=== PATIENT | female | born 1950 | race Caucasian/White ===

== ENCOUNTER 2019-01-05 10:45 | Emergency (ER) | payer OTHER ==
--- NOTE | 2019-01-05 12:05 | ER ---
Nurse's Notes [facility] Name: Ariella Ignacio Age: 68 yrs Sex: Female : 1950 Arrival Date: 01/05/2019 Time: 10:48 Bed 19 Private MD: Diagnosis: Superficial injury of head-occipatal hematoma Presentation: 01/05 11:07 Presenting complaint: Significant other states: "she fell over her vanity stool and hit aa5 the back of her head". Pt has dementia and is unable to recall incident. C/O pain to back of head. Unknown LOC. Transition of care: patient was not received from another setting of care. Onset of symptoms was January 05, 2019. Risk Assessment: Do you want to hurt yourself or someone else? Patient reports no desire to harm self or others. Initial Sepsis Screen: Does the patient meet any 2 criteria? No. Patient's initial sepsis screen is negative. Does the patient have a suspected source of infection? No. Patient's initial sepsis screen is negative. Care prior to arrival: None. 11:07 Acuity: JENNIFER 3 aa5 11:07 Method Of Arrival: Ambulatory aa5 12:00 Mechanism of Injury: Fall from standing position. Trauma event details: Injury occurred sv in the [facility], Injury occurred: at home. Injury occurred: January 05, 2019. Trauma Activation: Not Applicable Physician: ED Physician; Name: ; Notified At: ; Arrived At: Physician: General Surgeon; Name: ; Notified At: ; Arrived At: Physician: Radiology; Name: ; Notified At: ; Arrived At: Physician: Respiratory; Name: ; Notified At: ; Arrived At: Physician: Lab; Name: ; Notified At: ; Arrived At: Historical: - Allergies: 11:08 Ceclor; aa5 - PMHx: 11:08 Dementia; aa5 - PSHx: 11:08 None; aa5 - Immunization history:: Adult Immunizations unknown. - Social history:: Smoking status: Patient/guardian denies using tobacco. - Immunization history: Last tetanus immunization: - up to date. - Ebola Screening: : No symptoms or risks identified at this time. Screenin:53 Abuse screen: Denies threats or abuse. Denies injuries from another. Tuberculosis sv screening: No symptoms or risk factors identified. 11:59 Nutritional screening: No deficits noted. Fall Risk None identified. sv Primary Survey: 11:40 NO uncontrolled hemorrhage observed. A: The patient is alert. Airway: patent, No sv supplemental oxygen in use on arrival. Oral cavity: clear, Trachea midline. Breathing/Chest: Respiratory pattern: regular, Respiratory effort: spontaneous, unlabored, Chest inspection: symmetrical rise and fall of the chest. Circulation: Pulses: palpable right radial artery and left radial artery. Skin color: pink, Skin temperature: warm, dry. Disability Alert. Exposure/Environment: All clothing and personal items were removed. Forensic evidence collection is not deemed to be indicated at this time. Items placed in patient belonging bag. There is no evidence of uncontrolled external bleeding. No obvious injuries are noted at this time. A warming method has been applied: A warm blanket has been provided to the patient. 12:00 Reassessment Airway Airway Patent Oxygen No O2 Oral cavity Clear Trachea Midline sv Breathing/Chest Respiratory pattern Regular Respiratory effort Spontaneous Unlabored Chest inspection Symmetrical Circulation Pulses Palpable Color [place] Temperature Warm Dry Disability Alert. Secondary Survey: 11:40 HEENT: Head Other hematoma noted to the back of the head. Gastrointestinal: No deficits sv noted. : No deficits noted. No signs and/or symptoms were reported regarding the genitourinary system. Musculoskeletal: No deficits noted. No signs and/or symptoms reported regarding the musculoskeletal system. Assessment: 11:48 Reassessment: Informed Dr Tamayo of the reason for visit and symptoms, ok to order CT sv head/C-spine. Vital Signs: 11:08 BP 119 / 73; Pulse 64; Resp 18 S; Temp 98.0(TE); Pulse Ox 100% on R/A; aa5 12:00 BP 111 / 77; Pulse 66; Resp 16; Temp 98; Pulse Ox 99% ; sv Nicanor Coma Score: 11:40 Eye Response: spontaneous(4). Verbal Response: confused(4). Motor Response: obeys sv commands(6). Total: 14. 12:00 Eye Response: spontaneous(4). Verbal Response: confused(4). Motor Response: obeys sv commands(6). Total: 14. Trauma Score (Adult): 11:40 Eye Response: spontaneous(1); Verbal Response: confused(1); Motor Response: obeys sv commands(2); Systolic BP: > 89 mm Hg(4); Respiratory Rate: 10 to 29 per min(4); Kenmare Score: 14; Trauma Score: 12 12:00 Eye Response: spontaneous(1); Verbal Response: confused(1); Motor Response: obeys sv commands(2); Systolic BP: > 89 mm Hg(4); Respiratory Rate: 10 to 29 per min(4); Nicanor Score: 14; Trauma Score: 12 ED Course: 10:48 Patient arrived in ED. mr 11:08 Triage completed. aa5 11:08 Arm band placed on. aa5 11:20 See Tamayo MD is Attending Physician. elsie 11:40 Patient has correct armband on for positive identification. Bed in low position. Call sv light in reach. Side rails up X 1. Adult w/ patient. 11:40 Patient maintains SpO2 saturation greater than 95% on room air. sv 11:40 Thermoregulation: warm blanket given to patient. sv 11:43 Cleopatra Cool RN is Primary Nurse. sv 11:59 ED physician to see patient. sv 12:19 No provider procedures requiring assistance completed. Patient did not have IV access sv during this emergency room visit. Administered Medications: No medications were administered Intake: 11:40 PO: 0ml; Total: 0ml. sv 12:00 PO: 0ml; Total: 0ml. sv Output: 11:40 Urine: 0ml; Total: 0ml. sv 12:00 Urine: 0ml; Total: 0ml. sv Outcome: 12:05 Discharge ordered by . elsie 12:19 Patient left the ED. sv 12:19 Discharged to home ambulatory, with family. sv 12:19 Condition: stable 12:19 Discharge instructions given to family, Instructed on discharge instructions, follow up and referral plans. head injury precautions Demonstrated understanding of instructions, follow-up care, head injury precautions 12:20 Patient's length of stay was not longer than 2 hours. sv Signatures: Cleopatra Cool, See Rodriguez RN, MD MD cha Rivera, Mary mr WoodLucy, RN RN aa5
--- NOTE | 2019-01-05 12:06 | EDPHYS ---
Physician Documentation [facility] Name: Ariella Ignacio Age: 68 yrs Sex: Female : 1950 Arrival Date: 01/05/2019 Time: 10:48 Bed 19 Private MD: ED Physician See Tamayo HPI: 01/05 12:01 This 68 yrs old Female presents to ER via Ambulatory with complaints of Fall elsie Injury. 12:01 Details of fall: The patient fell from seated position, out of a chair. Onset: The elsie symptoms/episode began/occurred just prior to arrival. Associated injuries: The patient sustained injury to the head. Severity of symptoms: At their worst the symptoms were mild, in the emergency department the symptoms are unchanged. The patient has not experienced similar symptoms in the past. Historical: - Allergies: 11:08 Ceclor; aa5 - PMHx: 11:08 Dementia; aa5 - PSHx: 11:08 None; aa5 - Immunization history:: Adult Immunizations unknown. - Social history:: Smoking status: Patient/guardian denies using tobacco. - Immunization history: Last tetanus immunization: - up to date. - Ebola Screening: : No symptoms or risks identified at this time. ROS: 12:01 Constitutional: Negative for fever, chills, and weight loss, Eyes: Negative for injury, elsie pain, redness, and discharge, ENT: Negative for injury, pain, and discharge, Neck: Negative for injury, pain, and swelling, Cardiovascular: Negative for chest pain, palpitations, and edema, Respiratory: Negative for shortness of breath, cough, wheezing, and pleuritic chest pain, Abdomen/GI: Negative for abdominal pain, nausea, vomiting, diarrhea, and constipation, Back: Negative for injury and pain, : Negative for injury, bleeding, discharge, and swelling, MS/Extremity: Negative for injury and deformity, Skin: Negative for injury, rash, and discoloration, Neuro: Negative for headache, weakness, numbness, tingling, and seizure, Psych: Negative for depression, anxiety, suicide ideation, homicidal ideation, and hallucinations, Allergy/Immunology: Negative for hives, rash, and allergies, Endocrine: Negative for neck swelling, polydipsia, polyuria, polyphagia, and marked weight changes, Hematologic/Lymphatic: Negative for swollen nodes, abnormal bleeding, and unusual bruising. Exam: 12:01 Constitutional: This is a well developed, well nourished patient who is awake, alert, elsie and in no acute distress. Head/Face: Normocephalic, atraumatic. Eyes: Pupils equal round and reactive to light, extra-ocular motions intact. Lids and lashes normal. Conjunctiva and sclera are non-icteric and not injected. Cornea within normal limits. Periorbital areas with no swelling, redness, or edema. ENT: Nares patent. No nasal discharge, no septal abnormalities noted. Tympanic membranes are normal and external auditory canals are clear. Oropharynx with no redness, swelling, or masses, exudates, or evidence of obstruction, uvula midline. Mucous membranes moist. Neck: Trachea midline, no thyromegaly or masses palpated, and no cervical lymphadenopathy. Supple, full range of motion without nuchal rigidity, or vertebral point tenderness. No Meningismus. Chest/axilla: Normal chest wall appearance and motion. Nontender with no deformity. No lesions are appreciated. Cardiovascular: Regular rate and rhythm with a normal S1 and S2. No gallops, murmurs, or rubs. Normal PMI, no JVD. No pulse deficits. Respiratory: Lungs have equal breath sounds bilaterally, clear to auscultation and percussion. No rales, rhonchi or wheezes noted. No increased work of breathing, no retractions or nasal flaring. Abdomen/GI: Soft, non-tender, with normal bowel sounds. No distension or tympany. No guarding or rebound. No evidence of tenderness throughout. Back: No spinal tenderness. No costovertebral tenderness. Full range of motion. Female : Normal external genitalia. Skin: Warm, dry with normal turgor. Normal color with no rashes, no lesions, and no evidence of cellulitis. MS/ Extremity: Pulses equal, no cyanosis. Neurovascular intact. Full, normal range of motion. Psych: Awake, alert, with orientation to person, place and time. Behavior, mood, and affect are within normal limits. 12:01 Neuro: Orientation: is normal, appropriate for stated age, no acute changes, Mentation: is normal, appropriate for stated age, no acute changes, Memory: is normal, appropriate for stated age, no acute changes, Cranial nerves: grossly normal, is grossly normal based on the patient's age, no acute changes, Cerebellar function: is grossly normal, is grossly normal based on the patient's age, no acute changes, Motor: is normal, is grossly normal based on the patient's age, no acute changes, moves all fours, Gait: is steady, appropriate for age. Vital Signs: 11:08 BP 119 / 73; Pulse 64; Resp 18 S; Temp 98.0(TE); Pulse Ox 100% on R/A; aa5 12:00 BP 111 / 77; Pulse 66; Resp 16; Temp 98; Pulse Ox 99% ; sv Nicanor Coma Score: 11:40 Eye Response: spontaneous(4). Verbal Response: confused(4). Motor Response: obeys sv commands(6). Total: 14. 12:00 Eye Response: spontaneous(4). Verbal Response: confused(4). Motor Response: obeys sv commands(6). Total: 14. Trauma Score (Adult): 11:40 Eye Response: spontaneous(1); Verbal Response: confused(1); Motor Response: obeys sv commands(2); Systolic BP: > 89 mm Hg(4); Respiratory Rate: 10 to 29 per min(4); Basalt Score: 14; Trauma Score: 12 12:00 Eye Response: spontaneous(1); Verbal Response: confused(1); Motor Response: obeys sv commands(2); Systolic BP: > 89 mm Hg(4); Respiratory Rate: 10 to 29 per min(4); Nicanor Score: 14; Trauma Score: 12 MDM: 11:20 Patient medically screened. [facility] 12:03 Data reviewed: vital signs, nurses notes. [facility] 01/05 12:00 Order name: Ice pack; Complete Time: 12:02 [facility] Administered Medications: No medications were administered Disposition: 01/05/19 12:05 Discharged to Home. Impression: Superficial injury of head - occipatal hematoma. - Condition is Stable. - Discharge Instructions: Head Injury, Adult, Head Injury, Adult, [id number]. - Medication Reconciliation Form, Thank You Letter, Antibiotic Education, Prescription Opioid Use form. - Follow up: Private Physician; When: 1 - 2 days; Reason: Recheck today's complaints, Continuance of care, Re-evaluation by your physician. - Problem is new. - Symptoms have improved. Signatures: Dispatcher [employer] EDMN Cleopatra Cool, RN RN See Davis MD MD cha Calderon, Audri, RN RN aa5 Corrections: (The following items were deleted from the chart) 12:17 11:49 Head C Spine MPR Wo Con+CT.RAD.BRZ ordered. EDMN EDMS 12:19 12:05 01/05/2019 12:05 Discharged to Home. Impression: Superficial injury of head - sv occipatal hematoma. Condition is Stable. Forms are Medication Reconciliation Form, Thank You Letter, Antibiotic Education, Prescription Opioid Use. Follow up: Private Physician; When: 1 - 2 days; Reason: Recheck today's complaints, Continuance of care, Re-evaluation by your physician. Problem is new. Symptoms have improved. elsie
[2019-01-05 12:24] VITALS: BP 119/73; TEMP 98; O2SAT 100
== END 2019-01-05 12:19 | disposition home or self-care (01) ==
LOC: ER 10:45
DX: S00.90XA Unspecified superficial injury of unspecified part of head, initial encounter (principal); W01.190A Fall on same level from slipping, tripping and stumbling with subsequent striking against furniture, initial encounter; Y93.9 Activity, unspecified; Y92.9 Unspecified place or not applicable; Z88.8 Allergy status to other drugs, medicaments and biological substances
CPT/HCPCS: 99284

== ENCOUNTER 2019-03-06 09:33 | Emergency (ER) | payer OTHER ==
[2019-03-06] MEDS ORDERED: ALBUTEROL 2.5 MG/3 ML NEB SOL ONE (10:50)
[2019-03-06] MEDS ORDERED: HYDROCODONE/CHLORPHEN 5 ML/OSYR ONE (11:25)
--- NOTE | 2019-03-06 11:42 | RAD REPORT ---
EXAM DESCRIPTION: Bacilio Guerra (2 Views)03/06/2019 11:34 am CLINICAL HISTORY: Cough COMPARISON: 2016 FINDINGS: The lungs appear clear of acute infiltrate. The heart is normal size IMPRESSION: No acute abnormalities displayed
--- NOTE | 2019-03-06 12:22 | EDPHYS ---
Physician Documentation [facility] Name: Ariella Ignacio Age: 68 yrs Sex: Female : 1950 Arrival Date: 03/06/2019 Time: 09:35 Bed 17 Private MD: Raymond Andrew V ED Physician See Tamayo HPI: 03/06 10:24 This 68 yrs old Female presents to ER via Ambulatory with complaints of pm1 Cough, Congestion. 10:24 The patient or guardian reports cough, with productive sputum, wheezing at night. pm1 Onset: The symptoms/episode began/occurred 3 day(s) ago. Severity of symptoms: in the emergency department the symptoms are unchanged. Modifying factors: The symptoms are alleviated by nothing, the symptoms are aggravated by nothing. Associated signs and symptoms: Pertinent negatives: chest pain, diarrhea, ear ache, fever, nausea, rhinorrhea, sore throat, vomiting. The patient has not recently seen a physician. patient and concerned due to wheezing present at night and want a chest x-ray to evaluate for pneumonia. Historical: - Allergies: 09:48 Ceclor; ss - PMHx: 09:48 Dementia; Alzheimers; ss - PSHx: 09:48 lapband; ss - Immunization history:: Adult Immunizations up to date. - Social history:: Smoking status: Patient/guardian denies using tobacco. - Ebola Screening: : Patient denies exposure to infectious person Patient denies travel to an Ebola-affected area in the 21 days before illness onset. ROS: 10:24 Constitutional: Negative for fever, chills, and weight loss, Eyes: Negative for injury, pm1 pain, redness, and discharge, ENT: Negative for injury, pain, and discharge, Neck: Negative for injury, pain, and swelling, Cardiovascular: Negative for chest pain, palpitations, and edema, Abdomen/GI: Negative for abdominal pain, nausea, vomiting, diarrhea, and constipation, Back: Negative for injury and pain, : Negative for injury, bleeding, discharge, and swelling, MS/Extremity: Negative for injury and deformity, Skin: Negative for injury, rash, and discoloration, Neuro: Negative for headache, weakness, numbness, tingling, and seizure. 10:24 Respiratory: Positive for cough, wheezing, Negative for shortness of breath. Exam: 10:24 Constitutional: This is a well developed, well nourished patient who is awake, alert, pm1 and in no acute distress. Head/Face: Normocephalic, atraumatic. Eyes: Pupils equal round and reactive to light, extra-ocular motions intact. Lids and lashes normal. Conjunctiva and sclera are non-icteric and not injected. Cornea within normal limits. Periorbital areas with no swelling, redness, or edema. ENT: Nares patent. No nasal discharge, no septal abnormalities noted. Tympanic membranes are normal and external auditory canals are clear. Oropharynx with no redness, swelling, or masses, exudates, or evidence of obstruction, uvula midline. Mucous membranes moist. Neck: Trachea midline, no thyromegaly or masses palpated, and no cervical lymphadenopathy. Supple, full range of motion without nuchal rigidity, or vertebral point tenderness. No Meningismus. Chest/axilla: Normal chest wall appearance and motion. Nontender with no deformity. No lesions are appreciated. Cardiovascular: Regular rate and rhythm with a normal S1 and S2. No gallops, murmurs, or rubs. Normal PMI, no JVD. No pulse deficits. 10:24 Abdomen/GI: Soft, non-tender, with normal bowel sounds. No distension or tympany. No guarding or rebound. No evidence of tenderness throughout. Back: No spinal tenderness. No costovertebral tenderness. Full range of motion. Skin: Warm, dry with normal turgor. Normal color with no rashes, no lesions, and no evidence of cellulitis. MS/ Extremity: Pulses equal, no cyanosis. Neurovascular intact. Full, normal range of motion. 10:24 Respiratory: the patient does not display signs of respiratory distress, Respirations: normal, Breath sounds: wheezing: expiratory that is mild, is heard diffusely. 10:24 Neuro: Orientation: is normal, Motor: is normal, moves all fours. Vital Signs: 09:48 BP 126 / 88; Pulse 65; Resp 16; Temp 98.3(TE); Pulse Ox 97% on R/A; Weight 104.33 kg; ss Height 5 ft. 6 in. (167.64 cm); Pain 0/10; 11:04 BP 112 / 79; Pulse 60; Resp 18; Pulse Ox 100% on R/A; Pain 0/10; em 09:48 Body Mass Index 37.12 (104.33 kg, 167.64 cm) ss MDM: 09:43 Patient medically screened. [facility] 12:20 Data reviewed: vital signs. Data interpreted: Pulse oximetry: on room air is 100 %. pm1 Interpretation: normal. Counseling: I had a detailed discussion with the patient and/or guardian regarding: the historical points, exam findings, and any diagnostic results supporting the discharge/admit diagnosis, lab results, radiology results, the need for outpatient follow up, to return to the emergency department if symptoms worsen or persist or if there are any questions or concerns that arise at home. 03/06 10:24 Order name: Flu; Complete Time: 11:15 pm1 03/06 10:24 Order name: Chest Pa And Lat (2 Views) XRAY; Complete Time: 12:01 pm1 Administered Medications: 10:57 Drug: Albuterol 2.5 mg Route: Inhalation; em 11:26 Drug: Tussionex Pennkinetic ER 5 ml Route: PO; em 12:45 Follow up: Response: No adverse reaction em Disposition: 03/06/19 12:21 Discharged to Home. Impression: Influenza due to identified novel influenza A virus. - Condition is Stable. - Discharge Instructions: Influenza, Adult. - Prescriptions for Tamiflu 75 mg Oral Capsule - take 1 tablet by ORAL route every 12 hours for 5 days; 10 tablet. Albuterol Sulfate 90 mcg/actuation - inhale 1-2 puff by INHALATION route every 4-6 hours; 1 Inhaler. Guaifenesin AC 10- 100 mg/5 mL Oral Liquid - take 10 milliliter by ORAL route every 4 hours As needed; 240 milliliter. - Medication Reconciliation Form, Thank You Letter, Antibiotic Education, Prescription Opioid Use form. - Follow up: Emergency Department; When: As needed; Reason: Worsening of condition. Follow up: Private Physician; When: 2 - 3 days; Reason: Recheck today's complaints, Continuance of care, Re-evaluation by your physician. - Problem is new. - Symptoms have improved. Addendum: 03/14/2019 10:59 Co-signature as Attending Physician, See Tamayo MD I agree with the assessment and c worthy plan of care. Signatures: Dispatcher [employer] See Bowman MD MD cha Munoz, Edgar, ELECTRICAL LABORATORY TECHNICIAN ELECTRICAL LABORATORY TECHNICIAN Chhaya Guardado, CYNDI RN ss Sheldon Benito, CARBON GRINDER CARBON GRINDER pm1 Corrections: (The following items were deleted from the chart) 03/06 12:46 12:21 03/06/2019 12:21 Discharged to Home. Impression: Influenza due to identified ss novel influenza A virus. Condition is Stable. Forms are Medication Reconciliation Form, Thank You Letter, Antibiotic Education, Prescription Opioid Use. Follow up: Emergency Department; When: As needed; Reason: Worsening of condition. Follow up: Private Physician; When: 2 - 3 days; Reason: Recheck today's complaints, Continuance of care, Re-evaluation by your physician. Problem is new. Symptoms have improved. pm1
--- NOTE | 2019-03-06 12:22 | ER ---
Nurse's Notes [facility] Name: Ariella Ignacio Age: 68 yrs Sex: Female : 1950 Arrival Date: 03/06/2019 Time: 09:35 Bed 17 Private MD: Raymond Andrew V Diagnosis: Influenza due to identified novel influenza A virus Presentation: 03/06 09:43 Presenting complaint: states: Cough, sinus/ chest congestion x 2-3 days. Denies ss fever. Transition of care: patient was not received from another setting of care. Resp Distress? No respiratory distress is noted at this time. Onset of symptoms was March 03, 2019. Risk Assessment: Do you want to hurt yourself or someone else? Patient reports no desire to harm self or others. Initial Sepsis Screen: Does the patient have a suspected source of infection? Yes: Productive cough/pneumonia. Care prior to arrival: None. 09:43 Method Of Arrival: Ambulatory ss 09:43 Acuity: JENNIFER 3 ss 09:47 Initial Sepsis Screen: Does the patient meet any 2 criteria? No. Patient's initial ss sepsis screen is negative. Historical: - Allergies: 09:48 Ceclor; ss - PMHx: 09:48 Dementia; Alzheimers; ss - PSHx: 09:48 lapband; ss - Immunization history:: Adult Immunizations up to date. - Social history:: Smoking status: Patient/guardian denies using tobacco. - Ebola Screening: : Patient denies exposure to infectious person Patient denies travel to an Ebola-affected area in the 21 days before illness onset. Screenin:49 Abuse screen: Denies threats or abuse. Denies injuries from another. Nutritional ss screening: No deficits noted. Tuberculosis screening: Never had TB. 10:18 Fall Risk None identified. em Assessment: 10:09 General: Appears in no apparent distress. comfortable, Behavior is calm, cooperative, em Denies fever. Pain: Denies pain. Neuro: Level of Consciousness is awake, alert, obeys commands, Oriented to person, place, time, situation, Appropriate for age. Cardiovascular: Capillary refill < 3 seconds Patient's skin is warm and dry. Respiratory: Reports cough that is non-productive, Airway is patent Respiratory effort is even, unlabored, Respiratory pattern is regular, symmetrical, Breath sounds are clear bilaterally. EENT: Reports nasal congestion. Derm: Skin is intact, is healthy with good turgor, Skin is pink, warm \T\ dry. Musculoskeletal: Capillary refill < 3 seconds, Range of motion: intact in all extremities. 11:49 Reassessment: Patient appears in no apparent distress at this time. Patient and/or em family updated on plan of care and expected duration. Pain level reassessed. Patient is alert, oriented x 3, equal unlabored respirations, skin warm/dry/pink. 12:40 Reassessment: Patient appears in no apparent distress at this time. Patient and/or em family updated on plan of care and expected duration. Pain level reassessed. Patient is alert, oriented x 3, equal unlabored respirations, skin warm/dry/pink. Vital Signs: 09:48 BP 126 / 88; Pulse 65; Resp 16; Temp 98.3(TE); Pulse Ox 97% on R/A; Weight 104.33 kg; ss Height 5 ft. 6 in. (167.64 cm); Pain 0/10; 11:04 BP 112 / 79; Pulse 60; Resp 18; Pulse Ox 100% on R/A; Pain 0/10; em 09:48 Body Mass Index 37.12 (104.33 kg, 167.64 cm) ED Course: 09:35 Patient arrived in ED. as 09:35 Raymond Andrew MD is Private Physician. as 09:39 Sheldon Benito NP is PHCP. pm1 09:40 See Tamayo MD is Attending Physician. pm1 09:42 Daniel Vegas LVN is Primary Nurse. em 09:46 Triage completed. ss 09:48 Arm band placed on right wrist. ss 09:49 Patient has correct armband on for positive identification. Bed in low position. Call ss light in reach. 11:34 Chest Pa And Lat (2 Views) XRAY In Process Unspecified. EDMS 12:39 No provider procedures requiring assistance completed. Patient did not have IV access em during this emergency room visit. Administered Medications: 10:57 Drug: Albuterol 2.5 mg Route: Inhalation; em 11:26 Drug: Tussionex Pennkinetic ER 5 ml Route: PO; em 12:45 Follow up: Response: No adverse reaction em Outcome: 12:21 Discharge ordered by . pm1 12:39 Discharged to home ambulatory, with family. em 12:39 Condition: good 12:39 Discharge instructions given to patient, family, Instructed on discharge instructions, follow up and referral plans. medication usage, Demonstrated understanding of instructions, follow-up care, medications, Prescriptions given X 3. 12:46 Patient left the ED. Signatures: Dispatcher [employer] EDDaniel Anaya, LABORATORY ASST LABORATORY ASST Angeli Figueroa Shelby, CYNDI RN Sheldon Benito NP CALENDER WORKER HELPER pm1
[2019-03-06 12:54] VITALS: TEMP 98.3
[2019-03-06 12:56] VITALS: BP 112/79; O2SAT 100
== END 2019-03-06 12:46 | disposition home or self-care (01) ==
LOC: ER 09:33
DX: J10.1 Influenza due to other identified influenza virus with other respiratory manifestations (principal); G30.9 Alzheimer's disease, unspecified; F02.80 Dementia in other diseases classified elsewhere, unspecified severity, without behavioral disturbance, psychotic disturbance, mood disturbance, and anxiety; Z88.8 Allergy status to other drugs, medicaments and biological substances
CPT/HCPCS: 71046; 87804; 99284

== ENCOUNTER 2019-08-07 16:24 | Emergency (ER) | payer OTHER ==
--- OUTSIDE RECORDS SUMMARY | 2019-08-07 16:26 | XMS REPORT ---
:1950 Author Organization [facility] t Address [address] [place] [address] [address] [place] [address] Care Team Providers Name Role Phone Kamran MONAE Primary Care Physician Yrn MONAE Attending Clinician Marianela TOBIAS Attending Clinician Unavailable Gisela HANNA Attending Clinician Unavailable Carlos Marc MD Attending Clinician Maren WHELAN Attending Clinician Unavailable Payers Payer Name Policy Type Policy Number Effective Date Expiration Date S jeannie AETNA xxxxxxxx 2019 [place] MEDICAREAETNA 00:00:00 [facility] MEDICARE HMO/PPO [id number] 0-PresentHMO Problems This patient has no known problems. Allergies, Adverse Reactions, Alerts Allergy Allergy Status Severity Reaction(s) Onset Inactive Treating Comm ents Source Name Type Date Date Clinician Cefaclor Propensi Active Hives [place] ty to 2-06 [facility] adverse 00:00: st reaction 00 s to drug Family History Family Member Diagnosis Comments Start Date Stop Date Source Natural father Alcohol abuse [place] [facility] Natural mother Alzheimer's disease [place] [facility] Natural mother Colon cancer [place] [facility] Social History Social Habit Start Date Stop Date Quantity Comments Source Sex Assigned At [facility] M ethodist Exposure to Not sure [place] Metho dist SARS-CoV-2 (event) Alcohol intake 2019-02-10 2019-02-10 Current drinker of Mike umanzor [facility] 00:00:00 00:00:00 alcohol (finding) Alcohol Comment 2017-07-06 2017-07-06 occasional glass Ella [place]on [facility] 00:00:00 00:00:00 of wine Smoking Status Start Date Stop Date Source Never smoker Duarte Hernández t Medications Ordered Filled Start Stop Current Ordering Indication Dosage Frequency Signature Comments Components Source Medication Medication Date Date Medication? Clinician (SIG) Name Name cholecalcif 2018-03 Yes 400U QD Take 400 [place] fuad, 2-05 Units by [facility] vitamin D3, 12:48: mouth st (VITAMIN 59 daily. D3) 400 unit tablet cyanocobala 2018-03 Yes 1{tbl} Place 1 [place] min, 2-05 tablet [facility] vitamin 12:48: under the st B-12, 23 tongue (VITAMIN daily. B-12) 1,000 mcg tablet, sublingual omeprazole 2018-03 Yes Q.5D 2 (two) [place] (PriLOSEC) 0-17 times a Method i 40 MG 00:00: day. st capsule 00 memantine 2020- No 10mg Q.5D Take 1 [place] (NAMENDA) 11-30- tablet (10 Met hodi 10 MG 00:00: 23:59 mg total) st tablet 00 :00 by mouth 2 (two) times a day. donepezil Yes TAKE 1 [place] (ARICEPT) 8-02 TABLET BY Metho di 10 MG 00:00: MOUTH st tablet 00 EVERY DAY AT BEDTIME montelukast 2019- No 10mg QD Take 10 mg Duarte (SINGULAIR) 7-08 07-08 by mouth Met hodi 10 mg 09:54: 00:[address] tablet 50 :00 folic acid Yes 1mg QD Take 1 mg Mike umanzor (FOLVITE) 1 5-28 by mouth Meth iliana MG tablet 00:00: daily. st 00 colesevelam Yes 625mg Q.5D Take 625 [place] (WELCHOL) 5-12 mg by Methodi 625 mg 00:00: mouth 2 st tablet 00 (two) times a day. rosuvastati Yes 10mg QD Take 10 mg Ramachandran n (CRESTOR) 5-05 by mouth Meth iliana 10 MG 00:00: daily. st tablet 00 escitalopra 2017-03 Yes TAKE 1 [place] (LEXAPRO) 1-09 TABLET BY Met hodi 20 MG 00:00: MOUTH st tablet 00 EVERY DAY memantine 2017-03 2019- No Memory 5 mg/day H [place] (NAMENDA 0-15 24 impairment for =1 Me [facility] TITRATION 00:00: 00:00 week; 5 mg s t PACK) 5-10 00 :00 twice mg tablet daily for pack =1 week; 15 mg/day given in 5 mg and 10 mg doses for =1 week; then 10 mg twice daily VAYACOG Yes TAKE ONE [place] 100-19.5-6. 9-10 CAPSULE BY Me thodi 5 mg 00:00: MOUTH st capsule 00 EVERY DAY donepezil 2019- No TAKE 1 [place] (ARICEPT) 09-24 TABLET BY Meth iliana 10 MG 00:00: 00:[address] tablet 00 :00 EVERY DAY AT BEDTIME Vital Signs Vital Name Observation Time Observation Value Comments Source Systolic blood 2019-02-10 12:46:00 154 mm[Hg] [place] [facility] pressure Diastolic blood 2019-02-10 12:46:00 79 mm[Hg] [place] [facility] pressure Heart rate 2019-02-10 12:46:00 68 /min Duarte Wongist Body temperature 2019-02-10 12:46:00 37 Rosemarie [place] [facility] Respiratory rate 2019-02-10 12:46:00 16 /min [place] [facility] Body height 2019-02-10 12:46:00 167.6 cm Duarte Carrero Body weight 2019-02-10 12:46:00 127.506 kg Duarte Wongist BMI 2019-02-10 12:46:00 45.37 kg/m2 Duarte Carrero Oxygen saturation in 2019-02-10 12:46:00 96 /min Ramachandran [facility] Arterial blood by Pulse oximetry Procedures Procedure Date / Time Performed Performing Clinician Sourc e [place] UPPER GI 2019-02-17 09:35:00 Sven Pool Meth odist Plan of Care Planned Activity Planned Date Details Comments Source Future Scheduled 2019-10-08 INFLUENZA VACCINE [place] [facility] Test 00:00:00 [code = INFLUENZA VACCINE] Future Scheduled 2017 65+ PNEUMOCOCCAL Ramachand[facility] Test 00:00:00 VACCINE (1 of 2 - PCV13) [code = 65+ PNEUMOCOCCAL VACCINE (1 of 2 - PCV13)] Future Scheduled 2002 BREAST CANCER [place] Me thodist Test 00:00:00 SCREENING [code = BREAST CANCER SCREENING] Future Scheduled 2002 COLONOSCOPY SCREENING [place] [facility] Test 00:00:00 [code = COLONOSCOPY SCREENING] Future Scheduled 2002 SHINGLES VACCINES (#1) [facility] [place] [facility] Test 00:00:00 [code = SHINGLES VACCINES (#1)] Encounters Start End Encounter Admission Attending Care Care Encounter Source Date/Time Date/Time Type Type Clinicians Facility Department ID 2019-02-17 2019-02-17 Outpatient YRN, [facility] [id number] 425 [place] 00:00:00 00:00:[address] SVEN [address] Results Test Description Test Time Test Comments Results Result Sourc e Comments FL Upper GI wo 2019-02-06 [facility] [place] KUB [address] 09:40:55 - 02/17/2019 9:44 AM CSTEXAMINATION: [place] UPPER GICLINICAL HISTORY: R10.13 Epigastric pain, Z98.84 Bariatric surgery status, Esophageal refluxCOMPARISON: Esophagram from 05/28/2016.TECHNIQUE: Upper GI series was performed with thin barium.FLUOROSCOPIC TIME: 2.4 minutesNUMBER OF IMAGES: 17 imagesFINDINGS:1. Esophagus: Suboptimal evaluation of the esophageal mucosa without effervescent granules (not administered due to the gastric band). No definite mucosal abnormalities are identified. No evidence of esophageal stricture. The esophagus is mildly patulous with mildly delayed esophageal emptying. There are numerous nonpropulsive tertiary contraction waves, likely age-related.2. Gastroesophageal junction: No evidence of hiatal hernia. No spontaneous gastroesophageal reflux, nor was reflux provoked with Valsalva maneuver, coughing, or Trendelenburg positioning.3. Stomach: A gastric band is in place. Phi angle is approximately 49 degrees, within normal limits. Suboptimal evaluation of the gastric mucosa without effervescent granules, but no discrete abnormality was identified.4. Duodenum: Bulb and sweep are normal. The duodenal-jejunal junction is in the normal expected position.IMPRESSION:M ildly patulous esophagus with mildly delayed esophageal emptying, likely related to the gastric band.No evidence of hiatal hernia or spontaneous or provoked gastroesophageal reflux.[id number]
--- OUTSIDE RECORDS SUMMARY | 2019-08-07 16:26 | XMS REPORT | Clinical Summary ---
:1950 Author Organization [facility] Address [address] [place] [address] Care Team Providers Name Role Phone Raymond Andrew MD Primary Care Provider Allergies Active Allergy Reactions Severity Noted Date Comments Cefaclor Hives High 04/14/2016 Medications Medication Sig Dispensed Refills Start Date End Date Status cyanocobalamin, Place 1 tablet 0 Active vitamin B-12, under the (VITAMIN B-12) tongue daily. 1,000 mcg tablet, sublingual cholecalciferol, Take 400 Units 0 Active vitamin D3, by mouth (VITAMIN D3) 400 daily. unit tablet VAYACOG TAKE ONE 90 capsule 1 11/16/2017 Active 100-19.5-6.5 mg CAPSULE BY capsule MOUTH EVERY DAY escitalopram TAKE 1 TABLET 30 tablet 0 01/15/2018 Ac tive (LEXAPRO) 20 MG BY MOUTH EVERY tablet DAY colesevelam Take 625 mg by 0 07/18/2018 Ac tive (WELCHOL) 625 mg mouth 2 (two) tablet times a day. folic acid Take 1 mg by 3 08/03/2018 Activ e (FOLVITE) 1 MG mouth daily. tablet rosuvastatin Take 10 mg by 1 07/11/2018 Ac tive (CRESTOR) 10 MG mouth daily. tablet donepezil TAKE 1 TABLET 90 tablet 3 10/08/2018 Activ e (ARICEPT) 10 MG BY MOUTH EVERY tablet DAY AT BEDTIME memantine Take 1 tablet 180 tablet 2 11/30/2018 Acti ve (NAMENDA) 10 MG (10 mg total) 0 tablet by mouth 2 (two) times a day. omeprazole 2 (two) times 0 12/23/2018 Acti ve (PriLOSEC) 40 MG a day. capsule donepezil TAKE 1 TABLET 90 tablet 3 09/24/2017 Disco ntinued (ARICEPT) 10 MG BY MOUTH EVERY 9 (Reorder) tablet DAY AT BEDTIME montelukast Take 10 mg by 0 Disc ontinued (SINGULAIR) 10 mg mouth nightly. 9 (Med List tablet Cleanup) memantine 5 mg/day for 49 tablet 12 12/21/2017 Discon tinued (NAMENDA =1 week; 5 mg 9 TITRATION PACK) twice daily 5-10 mg tablet for =1 week; packIndications: 15 mg/day Memory impairment given in 5 mg and 10 mg doses for =1 week; then 10 mg twice daily Active Problems No known active problems Encounters Date Type Specialty Care Team Description 07/21/2019 Travel 02/17/2019 Hospital Encounter Radiology Sven Pool MD Dyspe psia; Hx of laparosco pic gastric banding 02/11/2019 Orders Only General Surgery Leti Bear MA 02/10/2019 Office Visit General Surgery Sven Pool MD Dyspepsi a (Primary Dx); Hx of laparosco pic gastric banding; Esophageal dysp hagia 12/13/2018 Telephone General Surgery Sven Pool MD 11/30/2018 Orders Only Neurology Ale Higgins RN 10/08/2018 Refill Neurology Cornelio Marc MD 09/13/2018 Office Visit Neurology Cornelio Marc Early onset MD Carlos Alzheimer's dem entia without behavio ral disturbance (Pr imary Dx) 09/13/2018 Social Work Neurology Isa Engel, ENTRY TABLE OPERATOR after 08/06/2018 Family History Medical History Relation Name Comments Alcohol abuse Father Alzheimer's disease Mother before 2013 Colon cancer Mother Relation Name Status Comments Father Mother Social History Tobacco Use Types Packs/Day Years Used Date Never Smoker Smokeless Tobacco: Never Used Alcohol Use Drinks/Week oz/Week Comments Yes occasional glass of wine Sex Assigned at Date Recorded Female 08/07/2019 3:38 PM CDT Job Start Date Occupation Industry Not on file Not on file Not on file Travel History Travel Start Travel End No recent travel history available. COVID-19 Exposure Response Date Recorded In the last month, have you been in contact with No / Unsure 07/21/2019 11:37 AM CDT someone who was confirmed or suspected to have Coronavirus / COVID-19? Last Filed Vital Signs Vital Sign Reading Time Taken Comments Blood Pressure 154/79 02/10/2019 12:46 PM [facility] Pulse 68 02/10/2019 12:46 PM [facility] Temperature 37 C (98.6 F) 02/10/2019 12:46 PM [facility] Respiratory Rate 16 02/10/2019 12:46 PM [facility] Oxygen Saturation 96% 02/10/2019 12:46 PM [facility] Inhaled Oxygen Concentration - - Weight 128 kg (281 lb 1.6 oz) 02/10/2019 12:46 PM [facility] Height 167.6 cm (5' 6") 02/10/2019 12:46 PM [facility] Body Mass Index 45.37 02/10/2019 12:46 PM [facility] Plan of Treatment Date Type Specialty Care Team Description 08/10/2019 Office Visit Neurology Cornelio Marc MD [address] [facility] [facility] [address] [place], [place] [address] [phone] Health Maintenance Due Date Last Done Comments BREAST CANCER SCREENING 2002 COLONOSCOPY SCREENING 2002 SHINGLES VACCINES (#1) 2002 65+ PNEUMOCOCCAL VACCINE (1 of 2 - PCV13) 2017 INFLUENZA VACCINE 10/08/2019 Procedures Procedure Name Priority Date/Time Associated Diagnosis Comme nts [place] UPPER GI Routine 02/17/2019 9:35 AM Dyspepsia Results for this [facility] Hx of laparoscopic procedure are in gastric banding the results section. after 08/06/2018 Results [place] Upper GI wo KUB (02/17/2019 9:35 AM [facility]) Specimen Narrative Performed At EXAMINATION: [place] UPPER GI [facility] CLINICAL HISTORY: R10.13 Epigastric pain, Z98.84 Bar iatric surgery status, Esophageal reflux COMPARISON: Esophagram from 05/28/2016. TECHNIQUE: Upper GI series was performed with thin barium. FLUOROSCOPIC TIME: 2.4 minutes NUMBER OF IMAGES: 17 images FINDINGS: 1. Esophagus: Suboptimal evaluation of the esophag eal mucosa without effervescent granules (not administered due to the gas tric band). No definite mucosal abnormalities are identified. No evid ence of esophageal stricture. The esophagus is mildly patulous with mildly delayed esophageal emptying. Ther e are numerous nonpropulsive tertiary contraction waves , likely age-related. 2. Gastroesophageal junction: No evidence of hiata l hernia. No spontaneous gastroesophageal reflux, nor was reflux pr ovoked with Valsalva maneuver, coughing, or Trendele nburg positioning. 3. Stomach: A gastric band is in place. Phi angle is approximately 49 degrees, within normal limits. Suboptimal evaluatio n of the gastric mucosa without effervescent granules, but no discrete abnormality was identified. 4. Duodenum: Bulb and sweep are normal. The duoden al-jejunal junction is in the normal expected posit ion. IMPRESSION: Mildly patulous esophagus with mildly delayed esophage al emptying, likely related to the gastric band. No evidence of hiatal hernia or spontaneous or provoke d gastroesophageal reflux. [id number] Procedure Note Hm Interface, Radiology Results Incoming - 02/17/2019 9:44 AM [facility] EXAMINATION: FL UPPER GI CLINICAL HISTORY: R10.13 Epigastric flakito n, Z98.84 Bariatric surgery status, Esophageal reflux COMPARISON: Esophagram from 05/28/2016. TECHNIQUE: Upper GI series was performed with thin barium. FLUOROSCOPIC TIME: 2.4 minutes NUMBER OF IMAGES: 17 images FINDINGS: 1. Esophagus: Suboptimal evaluation of the esophageal mucosa without effervescent granules (not administered due to the gastric band). No definite mucosal abnormalities are identified. No evidence of esophageal stricture. The esophagus is mildly patulous with mildly delayed esophageal emptying. There are numerous nonpropulsive tertiary contraction waves, likely age-related. 2. Gastroesophageal junction: No evide nce of hiatal hernia. No spontaneous gastroesophageal reflux, nor was reflux provoked with Valsalva maneuver, coughing, or Trendelenburg positioning. 3. Stomach: A gastric band is in place . Phi angle is approximately 49 degrees, within normal limits. Suboptimal evaluation of the gastric mucosa without effervescent granules, but no discrete abnormality was identified. 4. Duodenum: Bulb and sweep are normal . The duodenal-jejunal junction is in the normal expected position. IMPRESSION: Mildly patulous esophagus with mildly de layed esophageal emptying, likely related to the gastric band. No evidence of hiatal hernia or spontane ous or provoked gastroesophageal reflux. [id number] Performing Organization Address City/State/Zipcode Phone Number [facility] [address] [place] [address] after 08/06/2018 Advance Directives For more information, please contact: [phone] Type Date Recorded Patient Dehydrator Tender Explanati on Advance Directives, Living Will and Medical Power of Range Conservationist
[2019-08-07 17:35] LABS: Absolute Lymphocytes (CBC) 1.1 K/uL (0.7-4.9); Basophils % 0.5 % (0-1.3); Hematocrit 40.3 % (36.0-45.0); Lymphocytes % 19.6 % (15.3-44.8); MPV 7.8 fL (7.6-11.3); RBC Red Blood Cell Count 4.63 M/uL (3.86-4.86)
[2019-08-07 17:53] LABS: Urine Blood NEGATIVE (NEG); Urine Glucose NEGATIVE (NEG); Urine Protein NEGATIVE (NEG)
[2019-08-07 17:53] LABS: ALT/SGPT 20 U/L (12-78); AST/SGOT 12 U/L (15-37); Albumin 3.8 g/dL (3.4-5.0); Alkaline Phosphatase 58 U/L (45-117); BUN Blood Urea Nitrogen 18 mg/dL (7-18); Bicarbonate 25 mmol/L (21-32); Bilirubin Direct < 0.1 mg/dL (0-0.2); Bilirubin Total 0.3 mg/dL (0.2-1.0); Glucose Level 114 mg/dL (74-106); Magnesium 2.2 mg/dL (1.8-2.4); Potassium 3.7 mmol/L (3.5-5.1); Protein, Total 7.5 g/dL (6.4-8.2); Sodium Level 140 mmol/L (136-145); Troponin (Emerg Dept Use Only) < 0.02 ng/mL (0.0-0.045)
[2019-08-07 17:58] LABS: Urine Bacteria NONE SEEN /HPF (<20); Urine Culture Reflex Order NOT NEEDED; Urine RBC <5 /HPF (NONE SEEN)
--- NOTE | 2019-08-07 18:49 | RAD REPORT ---
EXAM DESCRIPTION: CT - Head Brain Wo Cont - 08/07/2019 6:25 pm CLINICAL HISTORY: Alteration of awareness/confusion COMPARISON: None TECHNIQUE: Computed axial tomography of the head was obtained. IV contrast was not requested. All CT scans are performed using dose optimization technique as appropriate and may include automated exposure control or mA/KV adjustment according to patient size. FINDINGS: An intracranial bleed is not seen . The ventricles are normal in caliber. No extra-axial fluid collection is noted. Mild cerebral atrophy. Fluid within the sinuses/ mastoids is not seen. IMPRESSION: No acute intracranial abnormality is seen. If patient's symptoms persist MRI of the bra in would be recommended.
[2019-08-07 20:26] VITALS: BP 133/84; TEMP 98.1; O2SAT 95
--- NOTE | 2019-08-08 19:16 | ER ---
Nurse's Notes [facility] Name: Ariella Ignacio Age: 68 yrs Sex: Female : 1950 Arrival Date: 08/07/2019 Time: 16:26 Bed 14 Private MD: Raymond Andrew V Diagnosis: Alzheimer's disease;Dementia in other diseases classified elsewhere Presentation: 08/06 16:29 Chief complaint: Spouse and/or significant other states: Pt has dementia. Today, she ca1 was crying off and on, then would laugh off and on and at times she wouldn't recognize me as her which was a first. Denies fever, abdominal pain, urinary s/s, cough. Coronavirus screen: Proceed with normal triage. Patient denies a cough. Patient denies shortness of breath or difficulty breathing. Patient denies measured and/or subjective temperature greater than 100.4F prior to today's visit. Patient denies travel on a cruise ship or to a country the [facility] currently lists as an affected area. Patient denies contact with known and/or suspected case of COVID-19. Ebola Screen: Patient negative for fever greater than or equal to 101.5 degrees Fahrenheit, and additional compatible Ebola Virus Disease symptoms Patient denies exposure to infectious person. Patient denies travel to an Ebola-affected area in the 21 days before illness onset. No symptoms or risks identified at this time. Initial Sepsis Screen: Does the patient meet any 2 criteria? No. Patient's initial sepsis screen is negative. Does the patient have a suspected source of infection? No. Patient's initial sepsis screen is negative. Risk Assessment: Do you want to hurt yourself or someone else? Patient reports no desire to harm self or others. Onset of symptoms was August 07, 2019. 16:29 Method Of Arrival: Ambulatory ca1 16:29 Acuity: JENNIFER 3 ca1 Triage Assessment: 16:36 General: Appears in no apparent distress. comfortable, Behavior is calm, cooperative. ls4 16:36 Pain: Denies pain. Neuro: Level of Consciousness is awake, alert, obeys commands, ls4 Oriented to person, place, time, Pt ALERT AND ORIENTED BUT HAS DIFFICULTY REMEMBERING HOW TO PERFORM TASKS, LIKE REMOVING GOWN AND SITTING ON BED. PT INTERMITTENTLY IS INAPPROPRIATE AND SEEMS TO LOSE TRACK OF CONVERSATION AND ANSWERS QUESTIONS WITH ANSWERS THAT WOULD BE CORRECT FOR A DIFFERENT QUESTION. PT IS PLEASANT AND IS AWARE THAT SHE IS UNABLE TO REMEMBER HOW TO DO THINGS. . Cardiovascular: No deficits noted. Respiratory: No deficits noted. : No deficits noted. No signs and/or symptoms were reported regarding the genitourinary system. Historical: - Allergies: 16:35 Ceclor; ca1 - PMHx: 16:35 Alzheimers; Dementia; ca1 - PSHx: 16:35 lapband; ca1 - Immunization history:: Adult Immunizations up to date. - Social history:: Smoking status: Patient denies any tobacco usage or history of. Screenin:36 Abuse screen: Denies threats or abuse. Denies injuries from another. ls4 16:36 Nutritional screening: No deficits noted. Tuberculosis screening: No symptoms or risk ls4 factors identified. Fall Risk None identified. Assessment: 16:40 General: SEE TRIAGE NOTE . ls4 17:40 Reassessment: Patient appears in no apparent distress at this time. Patient and/or ls4 family updated on plan of care and expected duration. Pain level reassessed. Patient is alert, oriented x 3, equal unlabored respirations, skin warm/dry/pink. AT BEDSIDE. 18:55 Reassessment: Patient appears in no apparent distress at this time. Patient and/or ls4 family updated on plan of care and expected duration. Pain level reassessed. Patient is alert, oriented x 3, equal unlabored respirations, skin warm/dry/pink. Vital Signs: 16:29 BP 133 / 84; Pulse 75; Resp 16 S; Temp 98.1(TE); Pulse Ox 95% on R/A; Weight 102.06 kg ca1 (R); Height 5 ft. 6 in. (167.64 cm); Pain 0/10; 17:30 BP 138 / 80; Pulse 72; Pulse Ox 97% on R/A; ls4 19:00 BP 132 / 80; Pulse 74; Resp 18; Pulse Ox 97% on R/A; ls4 20:00 BP 128 / 72; Pulse 72; Resp 19; Pulse Ox 97% on R/A; Pain 0/10; ls4 16:29 Body Mass Index 36.32 (102.06 kg, 167.64 cm) ca1 ED Course: 16:26 Patient arrived in ED. ag5 16:26 Raymond Andrew MD is Private Physician. ag5 16:34 Triage completed. ca1 16:35 Sylvia Novak, RN is Primary Nurse. ls4 16:35 Arm band placed on right wrist. ca1 16:36 No provider procedures requiring assistance completed. ls4 16:38 See Barrios PA is PHCP. cp 16:38 Jacques Rosa MD is Attending Physician. cp 17:45 Urine Microscopic Only Sent. mh5 17:45 Basic Metabolic Panel Sent. mh5 17:45 CBC with Diff Sent. mh5 17:45 LFT's Sent. mh5 17:45 Magnesium Sent. 5 17:45 Troponin (emerg Dept Use Only) Sent. mh5 17:46 Initial lab(s) drawn, by me, sent to lab. EKG done, by ED staff, reviewed by Jacques Rosa MD. Inserted saline lock: 22 gauge in right antecubital area, using aseptic technique. Blood collected. Straight cath inserted, using sterile technique, 16 Fr. Specimen obtained. 17:47 Patient has correct armband on for positive identification. Placed in gown. Bed in low mh5 position. Call light in reach. Side rails up X 1. Adult w/ patient. Warm blanket given. monitoring tech on. Pulse ox on. NIBP on. 17:47 Urine collected: straight cath specimen, clear, Amount Returned: 350mL. mh5 18:25 CT Head Brain wo Cont In Process Unspecified. EDMS 20:00 IV discontinued, intact, bleeding controlled, No redness/swelling at site. Pressure ls4 dressing applied. Administered Medications: No medications were administered Outcome: 19:35 Discharge ordered by . cp 20:00 Discharged to home ambulatory, with family. ls4 20:00 Condition: good 20:00 Discharge instructions given to patient, family, Instructed on discharge instructions, follow up and referral plans. Demonstrated understanding of instructions, follow-up care, medications. 20:02 Patient left the ED. ls4 Signatures: Dispatcher [employer] EDMS See Barrios PA PA cp Martinez, Maria 5 Sylvia Novak, RN RN ls4 Mariaa Srinivasan RN RN ca1 Marquis Carroll ag5 Corrections: (The following items were deleted from the chart) 08/07 01:41 08/06 17:24 Sylvia Novak, RN is Primary Nurse. ls4 ls4
--- NOTE | 2019-08-08 19:16 | EDPHYS ---
Physician Documentation [facility] Name: Ariella Ignacio Age: 68 yrs Sex: Female : 1950 Arrival Date: 08/07/2019 Time: 16:26 Bed 14 Private MD: Raymond Andrew V ED Physician Jacques Rosa HPI: 08/06 17:00 This 68 yrs old Female presents to ER via Ambulatory with complaints of cp Anxiety. 17:00 The patient's problem is reported as altered mental status, confused, Patient had cp episode of crying and then laughter today. became concerned because at she did not recognize him briefly. 17:00 Duration: This was a single incident. Associated signs and symptoms: Pertinent cp negatives: abdominal pain, agitation, chest pain, combativeness, headache. Severity of symptoms: in the emergency department the symptoms have resolved and did so earlier today. Patient's baseline: Neuro: orientated to person, place, Motor: no deficits, Ambulation: walks without assistance, Speech: normal, Patient with history of Alzheimer's and Dementia. The patient has not experienced similar symptoms in the past. Historical: - Allergies: 16:35 Ceclor; ca1 - PMHx: 16:35 Alzheimers; Dementia; ca1 - PSHx: 16:35 lapband; ca1 - Immunization history:: Adult Immunizations up to date. - Social history:: Smoking status: Patient denies any tobacco usage or history of. ROS: 17:05 Constitutional: Negative for fever. cp 17:05 Eyes: Negative for injury, pain, redness, and discharge. cp 17:05 Cardiovascular: Negative for chest pain. 17:05 Respiratory: Negative for cough, shortness of breath. 17:05 Abdomen/GI: Negative for abdominal pain, nausea, vomiting, and diarrhea. 17:05 Neuro: Negative for altered mental status, headache, speech changes, weakness. 17:05 All other systems are negative. Exam: 17:10 ECG was reviewed by the Attending Physician. cp 17:12 Constitutional: The patient appears in no acute distress, alert, awake, cp non-diaphoretic, non-toxic, well developed, well nourished. 17:12 Head/Face: Normocephalic, atraumatic. cp 17:12 Eyes: Periorbital structures: appear normal, Pupils: equal, round, and reactive to light and accomodation, Extraocular movements: intact throughout, Conjunctiva: normal, no exudate, no injection, Lids and lashes: appear normal, bilaterally. 17:12 ENT: External ear(s): are unremarkable, Nose: is normal, Mouth: is normal, Posterior pharynx: is normal, airway is patent, no erythema, no exudate. 17:12 Chest/axilla: Inspection: normal, Palpation: is normal, no crepitus, no tenderness. 17:12 Cardiovascular: Rate: normal, Rhythm: regular, Edema: is not appreciated, JVD: is not appreciated. 17:12 Respiratory: the patient does not display signs of respiratory distress, Respirations: normal, no use of accessory muscles, labored breathing, is not present, Breath sounds: are clear throughout, no decreased breath sounds. 17:12 Abdomen/GI: Inspection: abdomen appears normal, Palpation: abdomen is soft and non-tender, in all quadrants. 17:12 Back: pain, is absent, ROM is normal. 17:12 Neuro: Orientation: no acute changes, per family, Mentation: no acute changes, per family, able to follow commands, confused, Cerebellar function: is grossly normal, Motor: moves all fours, strength is normal, Sensation: is normal. 19:00 Radiologist reports: no acute findings cp Vital Signs: 16:29 BP 133 / 84; Pulse 75; Resp 16 S; Temp 98.1(TE); Pulse Ox 95% on R/A; Weight 102.06 kg ca1 (R); Height 5 ft. 6 in. (167.64 cm); Pain 0/10; 17:30 BP 138 / 80; Pulse 72; Pulse Ox 97% on R/A; ls4 19:00 BP 132 / 80; Pulse 74; Resp 18; Pulse Ox 97% on R/A; ls4 20:00 BP 128 / 72; Pulse 72; Resp 19; Pulse Ox 97% on R/A; Pain 0/10; ls4 16:29 Body Mass Index 36.32 (102.06 kg, 167.64 cm) ca1 MDM: 16:52 Patient medically screened. cp 17:00 Differential diagnosis: CVA, TIA, Dementia, Alzheimer disease, metabolic disorder, drug cp effects. 19:30 Data reviewed: vital signs, nurses notes, lab test result(s), EKG, radiologic studies, cp CT scan, I have discussed the patient's presentation/case with the attending Emergency Department Physician; and as a result, I will discharge patient. 19:30 Test interpretation: by ED physician or midlevel provider: ECG. cp 19:34 Counseling: I had a detailed discussion with the patient and/or guardian regarding: the cp historical points, exam findings, and any diagnostic results supporting the discharge/admit diagnosis, lab results, radiology results, the need for outpatient follow up, a neurologist, to return to the emergency department if symptoms worsen or persist or if there are any questions or concerns that arise at home. 19:34 ED course: VSS. Discussed results of labs and CT with . Patient at baseline cp dementia and Alzheimer's. Will discharge to home for continued monitoring. 08/06 16:53 Order name: Basic Metabolic Panel; Complete Time: 18:04 08/06 18:04 Interpretation: Normal except: CL 110; GLUC 114; GFR 58. 08/06 16:53 Order name: CBC with Diff; Complete Time: 18:04 08/06 16:53 Order name: LFT's; Complete Time: 18:04 08/06 16:53 Order name: Magnesium; Complete Time: 18:04 08/06 16:53 Order name: Troponin (emerg Dept Use Only); Complete Time: 18:04 08/06 16:53 Order name: Urine Microscopic Only; Complete Time: 18:04 08/06 16:53 Order name: EKG; Complete Time: 16:54 08/06 16:53 Order name: Cardiac monitoring; Complete Time: 17:46 08/06 16:53 Order name: EKG - Nurse/Tech; Complete Time: 17:45 08/06 16:53 Order name: IV Saline Lock; Complete Time: 17:46 08/06 16:53 Order name: Labs collected and sent; Complete Time: 17:46 08/06 16:53 Order name: O2 Per Protocol; Complete Time: 18:33 08/06 17:46 Order name: Urine Dipstick--Ancillary (enter results); Complete Time: 18:04 08/06 18:05 Order name: CT Head Brain wo Cont; Complete Time: 18:54 08/06 18:54 Interpretation: Report reviewed. cp 08/06 16:53 Order name: O2 Sat Monitoring; Complete Time: 18:34 cp 08/06 16:53 Order name: Urine Dipstick-Ancillary (obtain specimen); Complete Time: 17:45 cp EC:10 Rate is 65 beats/min. Rhythm is regular. [place] interval is normal. QRS interval is normal. cp QT interval is normal. T waves are Inverted in lead aVR. Interpreted by me. Reviewed by me. Administered Medications: No medications were administered Disposition: 08/07 15:16 Co-signature as Attending Physician, Jacques Rosa MD I agree with the assessment and kdr plan of care. Disposition: 08/07/19 19:35 Discharged to Home. Impression: Alzheimer's disease, Dementia in other diseases classified elsewhere. - Condition is Stable. - Discharge Instructions: Dementia, Alzheimer Disease Caregiver Guide. - Medication Reconciliation Form, Thank You Letter, Antibiotic Education, Prescription Opioid Use form. - Follow up: Private Physician; When: 1 - 2 days; Reason: Recheck today's complaints. - Problem is chronic. - Symptoms are unchanged. Signatures: Dispatcher [employer] EDMS Jacques Rosa MD MD [facility] See Barrios PA PA cp Sylvia Novak RN RN ls4 Mariaa Srinivasan RN RN ca1 Corrections: (The following items were deleted from the chart) 08/06 20:02 19:35 08/07/2019 19:35 Discharged to Home. Impression: Alzheimer's disease; Dementia in ls4 other diseases classified elsewhere. Condition is Stable. Forms are Medication Reconciliation Form, Thank You Letter, Antibiotic Education, Prescription Opioid Use. Follow up: Private Physician; When: 1 - 2 days; Reason: Recheck today's complaints. Problem is chronic. Symptoms are unchanged. cp
== END 2019-08-07 20:02 | disposition home or self-care (01) ==
LOC: ER 16:24
DX: G30.9 Alzheimer's disease, unspecified (principal); F02.80 Dementia in other diseases classified elsewhere, unspecified severity, without behavioral disturbance, psychotic disturbance, mood disturbance, and anxiety; Z88.8 Allergy status to other drugs, medicaments and biological substances
CPT/HCPCS: 36415; 51702; 70450; 80048; 80076; 81003; 81015; 83735; 84484; 85025; 93005; 99284

== ENCOUNTER 2020-04-30 16:22 | Emergency (ER) | payer OTHER ==
--- OUTSIDE RECORDS SUMMARY | 2020-04-30 16:25 | XMS REPORT | Clinical Summary ---
:1950 Author Organization [facility] Address [address] [place] [address] Care Team Providers Name Role Phone Raymond [...] mouth (VITAMIN D3) 400 daily. unit tablet escitalopram TAKE 1 TABLET 30 tablet 0 [...] tive (CRESTOR) 10 MG mouth daily. tablet omeprazole 2 (two) times 0 12/23/2018 Acti ve (PriLOSEC) 40 MG a day. capsule memantine TAKE 1 TABLET 180 tablet 2 01/27/2020 Acti ve (NAMENDA) 10 MG BY MOUTH TWICE tablet A DAY metFORMIN XR TAKE 1 TABLET 90 tablet 4 03/13/2020 Ac tive (GLUCOPHAGE-XR) BY MOUTH EVERY 750 mg 24 hr DAY WITH tabletIndications BREAKFAST : Increased appetite QUEtiapine Take 1 tablet 30 tablet 11 04/03/2020 Acti ve (SEROqueL) 50 MG (50 mg total) tablet by mouth every morning. traZODone TAKE 1 TABLET 90 tablet 3 04/21/2020 Activ e (DESYREL) 50 MG BY MOUTH tablet NIGHTLY QUEtiapine TAKE 1 TABLET 90 tablet 4 04/24/2020 Acti ve (SEROquel) 100 MG (100 MG TOTAL) tablet BY MOUTH NIGHTLY VAYACOG TAKE ONE 90 capsule 1 11/16/2017 Disconti nued 100-19.5-6.5 mg CAPSULE BY 0 (Th erapy capsule MOUTH EVERY complete d) DAY donepezil TAKE 1 TABLET 90 tablet 3 10/08/2018 Disco ntinued (ARICEPT) 10 MG BY MOUTH EVERY 0 tablet DAY AT BEDTIME memantine Take 1 tablet 180 tablet 2 11/30/2018 Expi red (NAMENDA) 10 MG (10 mg total) 0 tablet by mouth 2 (two) times a day. ALPRAZolam Take 1 tablet 15 tablet 1 08/10/2019 Disc ontinued (Xanax) 0.25 MG (0.25 mg 0 tabletIndications total) by : Early onset mouth 3 Alzheimer's (three) times disease with a day as behavioral needed for disturbance (HCC) anxiety (For crying or anxiety spells) for up to 30 doses. donepeziL TAKE 1 TABLET 90 tablet 3 10/18/2019 Disco ntinued (ARICEPT) 10 MG BY MOUTH EVERY 0 (Drug tablet DAY AT BEDTIME inter action) ALPRAZolam TAKE 1 TABLET 15 tablet 1 11/24/2019 Disc ontinued (XANAX) 0.25 MG BY MOUTH 3 0 tabletIndications TIMES A DAY : Early onset NEEDED FOR Alzheimer's ANXIETY (FOR disease with CRYING OR behavioral ANXIETY disturbance (HCC) SPELLS) ALPRAZolam Take 1 tablet 50 tablet 0 11/25/2019 Disc ontinued (XANAX) 0.25 MG (0.25 mg 0 tabletIndications total) by : Early onset mouth 3 Alzheimer's (three) times disease with a day as behavioral needed for disturbance (HCC) anxiety for up to 50 doses. ALPRAZolam TAKE 1 TABLET 50 tablet 0 12/22/2019 Disc ontinued (XANAX) 0.25 MG BY MOUTH 3 0 tabletIndications TIMES A DAY : Early onset NEEDED FOR Alzheimer's ANXIETY FOR UP disease with TO 50 DOSES. behavioral disturbance (HCC) ALPRAZolam TAKE 1 TABLET 50 tablet 0 01/10/2020 Disc ontinued (XANAX) 0.25 MG BY MOUTH THREE 0 tabletIndications TIMES A DAY : Early onset NEEDED FOR Alzheimer's ANXIETY disease with behavioral disturbance (HCC) ALPRAZolam TAKE 1 TABLET 50 tablet 0 01/27/2020 Disc ontinued (XANAX) 0.25 MG BY MOUTH THREE 0 tabletIndications TIMES A DAY : Early onset NEEDED FOR Alzheimer's ANXIETY disease with behavioral disturbance (HCC) QUEtiapine Take 1 tablet 30 tablet 0 01/26/2020 Disc ontinued (SEROquel) 100 MG (100 mg total) 0 tablet by mouth nightly for 30 days. QUEtiapine TAKE 1 TABLET 90 tablet 1 02/17/2020 Disc ontinued (SEROquel) 100 MG (100 MG TOTAL) 0 (Therapy tablet BY MOUTH completed) NIGHTLY FOR 30 DAYS. ALPRAZolam TAKE 1 TABLET 50 tablet 0 02/20/2020 Disc ontinued (XANAX) 0.25 MG BY MOUTH THREE 1 (Reorder) tabletIndications TIMES A DAY : Early onset NEEDED FOR Alzheimer's ANXIETY disease with behavioral disturbance (HCC) risperiDONE Take 1 tablet 60 tablet 0 02/20/2020 Dis continued (RisperDAL) 1 MG (1 mg total) 1 (Therapy tabletIndications by mouth 2 c ompleted) : Early onset (two) times a Alzheimer's day for 30 disease with days. behavioral disturbance (HCC) metFORMIN XR Take 1 tablet 30 tablet 11 03/06/2020 Di scontinued (GLUCOPHAGE-XR) (750 mg total) 1 750 mg 24 hr by mouth daily tabletIndications with : Increased breakfast. appetite risperiDONE TAKE 1 TABLET 180 tablet 1 03/14/2020 Di scontinued (RisperDAL) 1 MG (1 MG TOTAL) 1 (Dose tabletIndications BY MOUTH 2 a djustment) : Early onset (TWO) TIMES A Alzheimer's DAY FOR 30 disease with DAYS. behavioral disturbance (HCC) risperiDONE Take 1 tablet 60 tablet 0 03/14/2020 Dis continued (RisperDAL) 3 MG (3 mg total) 1 tablet by mouth 2 (two) times a day for 30 days. ALPRAZolam Take 1 tablet 90 tablet 1 03/19/2020 Disc ontinued (XANAX) 0.25 MG (0.25 mg 1 (Reo rder) tabletIndications total) by : Early onset mouth 3 Alzheimer's (three) times disease with a day as behavioral needed for disturbance (HCC) anxiety for up to 30 days. ALPRAZolam Take 1 tablet 90 tablet 1 03/19/2020 Expi red (XANAX) 0.25 MG (0.25 mg 1 tabletIndications total) by : Early onset mouth 3 Alzheimer's (three) times disease with a day as behavioral needed for disturbance (HCC) anxiety for up to 30 days. QUEtiapine Take 1 tablet 60 tablet 2 03/27/2020 Disc ontinued (SEROqueL) 25 MG (25 mg total) 1 tablet by mouth 2 (two) times a day. traZODone Take 1 tablet 30 tablet 11 03/29/2020 Disco ntinued (DESYREL) 50 MG (50 mg total) 1 tablet by mouth nightly for 30 days. QUEtiapine Take 1 tablet 30 tablet 11 03/30/2020 Disc ontinued (SEROqueL) 100 MG (100 mg total) 1 tablet by mouth nightly for 360 days. QUEtiapine Take 1 tablet 30 tablet 11 03/30/2020 Disc ontinued (SEROqueL) 25 MG (25 mg total) 1 tablet by mouth every morning. Active Problems Problem Noted Date Increased appetite 03/06/2020 Encounters Date Type Specialty Care Team Description 04/21/2020 Refill Neurology Juan C Sanchez MD 04/20/2020 Refill Neurology Juan C Sanchez MD 04/18/2020 Refill Neurology Juan C Sanchez MD 04/10/2020 Telephone Neurology Ale Higgins, CYNDI 04/06/2020 Social Work Neurology Isa Engel, HEALTH INSURANCE ASSESSOR 04/05/2020 Social Work Neurology Isa Engel, [facility] 04/05/2020 Telephone ADMIN Ale Higgins, CYNDI 04/04/2020 Orders Only Neurology Juan C Sanchez MD 04/03/2020 Orders Only Neurology Juan C Sanchez MD 04/03/2020 Telephone Neurology Ale Higgins, CYNDI 03/30/2020 Orders Only Neurology Juan C Sanchez MD Toxic m etabolic encephalopathy (Primary Dx) 03/29/2020 Orders Only Neurology Juan C Sanchez MD 03/29/2020 Telephone ADMIN Ale Higgins, CYNDI 03/27/2020 Orders Only Neurology Juan C Sanchez MD 03/27/2020 Telephone Neurology Ale Higgins, CYNDI 03/19/2020 Orders Only Neurology Ale Higgins, CYNDI 03/19/2020 Telephone Neurology Ale Higgins RN 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) 03/19/2020 Orders Only ADMIN Ale Higgins RN 03/19/2020 Refill ADMIN Ale Higgins RN 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) 03/15/2020 Refill Neurology uGy Randall Early onset Ana's MD Alexis disease with be havioral disturbance (HC C) 03/14/2020 Orders Only Neurology Cornelio Marc MD 03/14/2020 Telephone ADMIN Ale Higgins RN 03/13/2020 Refill Neurology Cornelio Marc, Early o nset Ana's disease with be havioral disturbance (HC C) 03/07/2020 Refill Neurology Cornelio Marc Increas ed appetite MD 03/06/2020 Orders Only Neurology Cornelio Marc Increas ed appetite (Primary MD Dx) 03/05/2020 Telephone Neurology Ale Higgnis RN 02/20/2020 Orders Only Neurology Cornelio Marc Early o nset Mgs MD disease with be havioral disturbance (HC C) (Primary Dx) 02/20/2020 Telephone ADMIN Ale Higgins RN 02/18/2020 Telephone Neurology Guy Randall MD 02/17/2020 Refill Neurology Cornelio Marc Early o nset Alzheimer's MD disease with be havioral disturbance (HC C) 02/17/2020 Refill Neurology Cornelio Marc MD 02/06/2020 Telephone Neurology Edie Gill RN 01/26/2020 Telephone Neurology Ale Higgins RN 01/25/2020 Refill Neurology Cornelio Marc Early o nset Alzheimer's MD disease with be havioral disturbance (HC C) 01/21/2020 Refill Neurology Cornelio Marc MD 01/06/2020 Refill Neurology Cornelio Marc Early o nset Alzheimer's MD disease with be havioral disturbance (HC C) 12/20/2019 Refill Neurology Cornelio Marc Early o nset Alzheimer's MD disease with be havioral disturbance (HC C) 12/09/2019 Social Work Neurology Isa Engel, HEALTH INSURANCE ASSESSOR 11/25/2019 Orders Only Neurology Cornelio Marc Early o nset Alzheimer's disease with behavioral disturbance (HCC) (Primary Dx); Anxiety 11/25/2019 Orders Only ADMIN Ale Higgins RN 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) (Primary Dx) 11/24/2019 Telephone Neurology Ale Higgins RN 11/22/2019 Refill Neurology Cornelio Marc Early o nset Alzheimer's MD disease with be havioral disturbance (HC C) 10/13/2019 Refill Neurology Cornelio Marc MD 08/22/2019 Social Work Neurology Isa Engel, HEALTH INSURANCE ASSESSOR 08/10/2019 Office Visit Neurology Cornelio Marc, Early o nset Alzheimer's MD disease with be havioral disturbance (HC C) (Primary Dx) 08/10/2019 Travel 07/21/2019 Travel after 04/30/2019 Surgical History Surgery Date Site/Laterality Comments LAPAROSCOPIC GASTRIC BANDING age 55 Medical History Medical History Date Comments Anxiety Depression High cholesterol Memory loss Family History Medical History Relation Name Comments [...] file Not on file Not on file Last Filed Vital Signs Vital Sign Reading Time Taken Comments Blood Pressure 108/73 08/10/2019 9:19 AM CDT Pulse 75 08/10/2019 9:19 AM CDT Temperature 36.4 C (97.5 F) 08/10/2019 9:19 AM CDT Respiratory Rate - - Oxygen Saturation - - Inhaled Oxygen Concentration - - Weight 106 kg (233 lb 9.6 oz) 08/10/2019 9:19 AM CDT Height 167.6 cm (5' 6") 08/10/2019 9:19 AM CDT Body Mass Index 37.7 08/10/2019 9:19 AM CDT Plan of Treatment Health Maintenance Due Date Last Done Comments COVID-19 VACCINE (1 of 2) 1968 HEPATITIS C SCREENING 1970 BREAST CANCER SCREENING 2002 COLONOSCOPY SCREENING 2002 SHINGLES VACCINES (#1) 2002 65+ PNEUMOCOCCAL VACCINE (1 of 1 - PPSV23) 2017 INFLUENZA VACCINE 10/08/2019 Procedures Procedure Name Priority Date/Time Associated Diagnosis Comme nts URINALYSIS, AUTOMATED Routine 04/04/2020 4:59 Toxic metabolic Results for this WITH MICROSCOPY PM CRYPTOLOGIC TECHNICIAN OPERATOR/ANALYST encephalopathy procedure are in the results section. COMPREHENSIVE Routine 04/04/2020 3:55 Toxic metabolic Results for this METABOLIC PANEL PM CRYPTOLOGIC TECHNICIAN OPERATOR/ANALYST encephalopathy procedure are in the results section. CBC WITH PLATELET AND Routine 04/04/2020 3:55 Toxic metabolic Results for this DIFFERENTIAL PM CRYPTOLOGIC TECHNICIAN OPERATOR/ANALYST encephalopathy procedure are in the results section. after 04/30/2019 Results Urinalysis, automated with microscopy (04/04/2020 4:59 PM CRYPTOLOGIC TECHNICIAN OPERATOR/ANALYST) Color, UA YELLOW YELLOW [facility] [place] Appearance CLEAR CLEAR [facility] [place] Specific gravity, 1.013 1.001 - 1.035 [facility] urine [place] pH, urine < OR = 5.0 5.0 - 8.0 [facility] [place] Glucose, urine NEGATIVE NEGATIVE [facility] [place] Bilirubin, UA NEGATIVE NEGATIVE [facility] [place] Ketones, UA NEGATIVE NEGATIVE [facility] [place] Occult blood, urine NEGATIVE NEGATIVE [facility] [place] Protein, UA NEGATIVE NEGATIVE [facility] [place] Nitrite, UA NEGATIVE NEGATIVE [facility] [place] Leukocyte esterase, TRACE (A) NEGATIVE [facility] UA [place] WBC, UA NONE SEEN < OR = 5 /HPF [facility] [place] RBC, UA 0-2 < OR = 2 /HPF [facility] [place] Squamous epithelial NONE SEEN < OR = 5 /HPF [facility] cells, UA [place] Bacteria, UA NONE SEEN NONE SEEN /HPF [facility] [place] Hyaline casts, UA NONE SEEN NONE SEEN /LPF [facility] [place] Specimen Urine Narrative Performed At SPLIT 04/04/2020 FROM [id number] [facility] Resulting Agency Comment Performing Organization Information: Site ID: [id number] Name: [facility] Address: [address] [place] [id number] Director: Alexis Schroeder Performing Organization Address City/State/[facility] Code Phon e Number [email or web address] [place] [address] [place] [id number] CBC with platelet and differential (04/04/2020 3:55 PM CRYPTOLOGIC TECHNICIAN OPERATOR/ANALYST) Pathologist Sig nature WBC 7.1 3.8 - 10.8 [facility] Thousand/uL [place] RBC 4.16 3.80 - 5.10 [facility] Million/uL [place] HGB 12.1 11.7 - 15.5 [facility] g/dL [place] HCT 36.5 35.0 - 45.0 % [facility] [place] MCV 87.7 80.0 - 100.0 fL [facility] [place] MCH 29.1 27.0 - 33.0 pg [facility] [place] MCHC 33.2 32.0 - 36.0 [facility] g/dL [place] RDW 12.5 11.0 - 15.0 % [facility] [place] Platelet count 287 140 - 400 [facility] Thousand/uL [place] MPV 9.8 7.5 - 12.5 fL [facility] [place] Neutrophils, absolute 4,821 1,500 - 7,800 [facility] cells/uL [place] Lymphocytes, absolute 1,328 850 - 3,900 [facility] cells/uL [place] Monocytes, absolute 802 200 - 950 [facility] cells/uL [place] Eosinophils, absolute 121 15 - 500 [facility] cells/uL [place] Basophils, absolute 28 0 - 200 [facility] cells/uL [place] Neutrophils 67.9 % [facility] [place] Lymphocytes 18.7 % [facility] [place] Monocytes 11.3 % [facility] [place] Eosinophils 1.7 % [facility] [place] Basophils + RC 0.4 % [facility] [place] Specimen Blood Narrative Performed At FASTING:NO KRISTEN PATIENT UNABLE TO VOID; ADVISED TO RETUR N FOR COLLECTION. FASTING: NO Resulting Agency Comment Performing Organization Information: Site ID: [id number] Name: [facility] Address: [address] [place] [address] Director: Alexis Schroeder Performing Organization Address City/State/ZIP Code Phon e Number K[facility]STEN [facility] [place] [address] [place] [address] Comprehensive metabolic panel (04/04/2020 3:55 PM CRYPTOLOGIC TECHNICIAN OPERATOR/ANALYST) Glucose 114 65 - 139 [email or web address] Comment: mg/dL [place] Non-fasting reference interval BUN 19 7 - 25 mg/dL [email or web address] [place] Creatinine 1.02 (H) 0.50 - 0.99 [facility] Comment: mg/dL [place] For patients >49 years of age, the reference limit for Creatinine is approximately 13% higher for people identified as -[place]. EGFR Non-Afr. 57 (L) > OR = 60 [facility] [place] mL/min/1.73m [place] 2 EGFR 66 > OR = 60 [facility] [place] mL/min/1.73m [place] 2 BUN/creatinine 19 6 - 22 [facility] ratio (calc) [place] Sodium 141 135 - 146 [facility] mmol/L [place] Potassium 4.0 3.5 - 5.3 [facility] mmol/L [place] Chloride 104 98 - 110 [facility] mmol/L [place] CO2 30 20 - 32 [facility] mmol/L [place] Calcium 9.3 8.6 - 10.4 [facility] mg/dL [place] Protein 6.4 6.1 - 8.1 [facility] g/dL [place] Albumin, S 4.2 3.6 - 5.1 [facility] g/dL [place] Globulin, total 2.2 1.9 - 3.7 [facility] g/dL (calc) [place] Albumin/globulin 1.9 1.0 - 2.5 [facility] ratio (calc) [place] Total bilirubin 0.4 0.2 - 1.2 [facility] mg/dL [place] Alkaline 47 37 - 153 U/L [facility] phosphatase [place] AST 18 10 - 35 U/L [facility] [place] ALT 16 6 - 29 U/L [facility] [place] Specimen Blood Narrative Performed At FASTING:NO KRISTEN PATIENT UNABLE TO VOID; ADVISED TO RETUR N FOR COLLECTION. 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
--- OUTSIDE RECORDS SUMMARY | 2020-04-30 16:26 | XMS REPORT | Continuity of Care Document ---
:1950 Author Organization [facility] t Address [address] [place] [address] Dr. [address] [place] [address] Care Team Providers Name Role Phone Kamran MONAE Primary Care Physician DR ALEXSANDER Attending Clinician Unavailable Daniel MONAE Attending Clinician Gisela HANNA Attending Clinician Unavailable Maren WHELAN Attending Clinician Unavailable Alexis Randall MD Attending Clinician Carlos Marc MD Attending Clinician Kelsie Gill RN Attending Clinician Unavailable MARCOS Attending Clinician Unavailable DR ALEXSANDER Admitting Clinician Unavailable Payers Payer Name Policy Type Policy Number Effective Date Expiration Date S jeannie AETNA [id number] 2019 [place] MEDICAREAETNA 00:00:00 [place] MEDICARE HMO/PPO [id number]-PresentHMO Problems Condition Condition Condition Status Onset Resolution Last Treating Co mments Source Name Details Category Date Date Treatment Clinician Date Increased Increased Disease Active 2019-03 Ella ston appetite appetite 2-29 Method i 00:00: st 00 Allergies, Adverse Reactions, Alerts Allergy Allergy Status Severity Reaction(s) Onset Inactive Treating Comm ents Source Name Type Date Date Clinician Cefaclor Propensi Active Hives [place] ty to 2-06 Methodi adverse 00:00: st reaction 00 s to drug Family History Family Member Diagnosis Comments Start Date Stop Date Source Natural father Alcohol abuse [place] [facility] Natural mother Alzheimer's disease [place] [facility] Natural mother Colon cancer [facility] Social History Social Habit Start Date Stop Date Quantity Comments Source Sex Assigned At F Duarte Maradiaga ethodi Tobacco use and 2019-08-10 2019-08-10 Never used Duarte Maradiaga ethodist exposure 00:00:00 00:00:00 Alcohol intake 2019-08-10 2019-08-10 Current drinker of Mike umanzor [facility] 00:00:00 00:00:00 alcohol (finding) Alcohol Comment 2017-07-06 2017-07-06 occasional glass Ella silver [facility] 00:00:00 00:00:00 of wine Smoking Status Start Date Stop Date Source Never smoker Ramachandran Betty Medications Ordered Filled Start Stop Current Ordering Indication Dosage Frequency Signature Comments Components Source Medication Medication Date Date Medication? Clinician (SIG) Name Name QUEtiapine Yes TAKE 1 [place] (SEROquel) 2-16 TABLET Methodi 100 MG 00:00: ([address] tablet 00 TOTAL) BY MOUTH NIGHTLY traZODone Yes TAKE 1 [place] (DESYREL) 2-13 TABLET BY Metho di 50 MG 00:00: MOUTH st tablet 00 NIGHTLY QUEtiapine Yes 50mg QD Take 1 [place] (SEROqueL) 1-26 tablet (50 Met hodi 50 MG 00:00: mg total) st tablet 00 by mouth every morning. QUEtiapine 2020- No 100mg QD Take 1 Ella ston (SEROqueL) 03-30-16 tablet Method i 100 MG 00:00: 00:00 ([address] tablet 00 :00 total) by mouth nightly for 360 days. QUEtiapine 2020- No 25mg QD Take 1 [place] (SEROqueL) 03-30-26 tablet (25 Me thodi 25 MG 00:00: 00:00 mg total) st tablet 00 :00 by mouth every morning. traZODone 2020- No 50mg QD Take 1 [place] (DESYREL) - 02-12 tablet (50 Met hodi 50 MG 00:00: 00:00 mg total) st tablet 00 :00 by mouth nightly for 30 days. QUEtiapine 2020- No 25mg Q.5D Take 1 [place] (SEROqueL) 1-19 01-22 tablet (25 Me thodi 25 MG 00:00: 00:00 mg total) st tablet 00 :00 by mouth 2 (two) times a day. ALPRAZolam 2020- No Early onset .25mg Q.[id number] Take 1 Ramachandran (XANAX) 03-19 Alzheimer's [id number] tablet Methodi 0.25 MG 00:00: 23:59 disease 3D (0.[address] tablet 00 :00 with total) by behavioral mouth 3 disturbance (three) (HCC) times a day as needed for anxiety for up to 30 days. ALPRAZolam 2020- No Early onset .25mg Q.[id number] Take 1 Ramachandran (XANAX) 03-19 Alzheimer's [id number] tablet Methodi 0.25 MG 00:00: 00:00 disease 3D (0.[address] tablet 00 :00 with total) by behavioral mouth 3 disturbance (three) (HCC) times a day as needed for anxiety for up to 30 days. risperiDONE 2020- No Early onset 1mg Q.5D TAKE 1 Ramachandran (RisperDAL) 03-14 Alzheimer's TABLET (1 Methodi 1 MG tablet 00:00: 00:00 disease MG TOTAL) st 00 :00 with BY MOUTH 2 behavioral (TWO) disturbance TIMES A (HCC) DAY FOR 30 DAYS. risperiDONE 2020- No 3mg Q.5D Take 1 Ella silver (RisperDAL) 03-14 tablet (3 Me thodi 3 MG tablet 00:00: 00:00 mg total) st 00 :00 by mouth 2 (two) times a day for 30 days. metFORMIN Yes Increased TAKE 1 [place] XR 05 appetite TABLET BY Method i (GLUCOPHAGE 00:00: MOUTH st -XR) 750 mg 00 EVERY DAY 24 hr WITH tablet BREAKFAST metFORMIN 2019-03- No Increased 750mg QD Take 1 Ramachandran XR 03-13 appetite tablet Methodi (GLUCOPHAGE 00:00: 00:00 ([address] -XR) 750 mg 00 :00 total) by 24 hr mouth tablet daily with breakfast. ALPRAZolam 2019-03- No Early onset TAKE 1 Ramachandran (XANAX) 04-22 Alzheimer's TABLET BY Methodi 0.25 MG 00:00: 00:[address] tablet 00 :00 with THREE behavioral TIMES A disturbance DAY (HCC) NEEDED FOR ANXIETY risperiDONE 2019-03- No Early onset 1mg Q.5D Take 1 Duarte (RisperDAL) 203-14 Alzheimer's tablet (1 Methodi 1 MG tablet 00:00: 00:00 disease mg total) st 00 :00 with by mouth 2 behavioral (two) disturbance times a (HCC) day for 30 days. QUEtiapine 2019-03- No 100mg QD TAKE 1 Ella ston (SEROquel) 202-19 TABLET Method i 100 MG 00:00: 00:00 ([address] tablet 00 :00 TOTAL) BY MOUTH NIGHTLY FOR 30 DAYS. memantine 2019-03 Yes TAKE 1 [place] (NAMENDA) 1-20 TABLET BY Metho di 10 MG 00:00: MOUTH st tablet 00 TWICE A DAY ALPRAZolam 2019-03- No Early onset TAKE 1 Duarte (XANAX) 03-28 Alzheimer's TABLET BY Methodi 0.25 MG 00:00: 00:[address] tablet 00 :00 with THREE behavioral TIMES A disturbance DAY (HCC) NEEDED FOR ANXIETY QUEtiapine 2019-03- No 100mg QD Take 1 Ella ston (SEROquel) 03-27 tablet Method i 100 MG 00:00: 00:00 ([address] tablet 00 :00 total) by mouth nightly for 30 days. ALPRAZolam 2019-03- No Early onset TAKE 1 Ramachandran (XANAX) 1-05 17-20 Alzheimer's TABLET BY Methodi 0.25 MG 00:00: 00:[address] tablet 00 :00 with THREE behavioral TIMES A disturbance DAY (HCC) NEEDED FOR ANXIETY ALPRAZolam 2019-03- No Early onset TAKE 1 Ramachandran (XANAX) 0-15 - Alzheimer's TABLET BY Methodi 0.25 MG 00:00: 00:[address] tablet 00 :00 with TIMES A behavioral DAY disturbance NEEDED FOR (HCC) ANXIETY FOR UP TO 50 DOSES. ALPRAZolam 2019- No Early onset .25mg Q.[id number] Take 1 Ramachandran (XANAX) 9-18 10-15 Alzheimer's [id number] tablet Methodi 0.25 MG 00:00: 00:00 disease 3D (0.[address] tablet 00 :00 with total) by behavioral mouth 3 disturbance (three) (HCC) times a day as needed for anxiety for up to 50 doses. ALPRAZolam 2019- 2020- No Early onset TAKE 1 [place] (XANAX) 11-23 Alzheimer's TABLET BY Methodi 0.25 MG 00:00: 00:[address] tablet 00 :00 with TIMES A behavioral DAY disturbance NEEDED FOR (HCC) ANXIETY (FOR CRYING OR ANXIETY SPELLS) donepeziL 2019- No TAKE 1 [place] (ARICEPT) 10-17 TABLET BY Meth iliana 10 MG 00:00: 00:[address] tablet 00 :00 EVERY DAY AT BEDTIME cyanocobala 2019-0 Yes 1{tbl} Place 1 [place] min, 6- tablet Methodi vitamin 09:21: under the st B-12, 18 tongue (VITAMIN daily. B-12) 1,000 mcg tablet, sublingual cholecalcif Yes 400U QD Take 400 [place] fuad, 6- Units by Methodi vitamin D3, 09:21: mouth st (VITAMIN 18 daily. D3) 400 unit tablet ALPRAZolam 2019-0 2020- No Early onset .25mg Q.[id number] Take 1 [place] (Xanax) 08-09- Alzheimer's [id number] tablet Methodi 0.25 MG 00:00: 00:00 disease 3D (0.[address] tablet 00 :00 with total) by behavioral mouth 3 disturbance (three) (HCC) times a day as needed for anxiety (For crying or anxiety spells) for up to 30 doses. omeprazole 2018-03 Yes Q.5D 2 (two) [place] (PriLOSEC) 0-17 times a Method i 40 MG 00:00: day. st capsule 00 memantine 2019- No 10mg Q.5D Take 1 [place] (NAMENDA) 11-30 tablet (10 Met hodi 10 MG 00:00: 23:59 mg total) st tablet 00 :00 by mouth 2 (two) times a day. donepezil 2020- No TAKE 1 [place] (ARICEPT) 8-02 08-11 TABLET BY Meth iliana 10 MG 00:00: 00:[address] tablet 00 :00 EVERY DAY AT BEDTIME folic acid Yes 1mg QD Take 1 mg [place] (FOLVITE) 1 5-28 by mouth Meth iliana [...] 00:00: MOUTH st tablet 00 EVERY DAY VAYACOG 2020- No TAKE ONE [place] 100-19.5-6. 9-10 08-09 CAPSULE BY Hiren ethodi 5 mg 00:00: 00:[address] capsule 00 :00 EVERY DAY Vital Signs Vital Name Observation Time Observation Value Comments Source Systolic blood 2019-08-10 09:19:00 108 mm[Hg] [place] pressure Diastolic blood 2019-08-10 09:19:00 73 mm[Hg] [place] [facility] pressure Heart rate 2019-08-10 09:19:00 75 /min Duarte Carrero Body temperature 2019-08-10 09:19:00 36.39 Rosemarie [place] Body height 2019-08-10 09:19:00 167.6 cm Duarte Carrero Body weight 2019-08-10 09:19:00 105.96 kg Duarte Carrero BMI 2019-08-10 09:19:00 37.70 kg/m2 Duarte Carrero Procedures Procedure Date / Time Performed Performing Clinician Sour e URINALYSIS, AUTOMATED 2020-04-04 16:59:00 Juan C Sanchez on [facility] WITH MICROSCOPY CBC WITH PLATELET AND 2020-04-04 15:55:00 Juan C Sanchez on [facility] DIFFERENTIAL COMPREHENSIVE METABOLIC 2020-04-04 15:55:00 Juan C Sanchez [facility] PANEL Plan of Care Planned Activity Planned Date Details Comments Source Future Scheduled 2019-10-08 INFLUENZA VACCINE [place] [facility] Test 00:00:00 [code = INFLUENZA VACCINE] Future Scheduled 2017 65+ PNEUMOCOCCAL Ramachandran [facility] Test 00:00:00 VACCINE (1 of 1 - PPSV23) [code = 65+ PNEUMOCOCCAL VACCINE (1 of 1 - PPSV23)] Future Scheduled 2002 BREAST CANCER [facility] thodist Test 00:00:00 SCREENING [code = BREAST CANCER SCREENING] Future Scheduled 2002 COLONOSCOPY SCREENING [place] [facility] Test 00:00:00 [code = COLONOSCOPY SCREENING] Future Scheduled 2002 SHINGLES VACCINES (#1) H [place] [facility] Test 00:00:00 [code = SHINGLES VACCINES (#1)] Future Scheduled 1970 Hepatitis C screening [place] [facility] Test 00:00:00 (procedure) [code = 379190729] Future Scheduled 1968 COVID-19 VACCINE (1 of [place] [facility] Test 00:00:00 2) [code = COVID-19 VACCINE (1 of 2)] Encounters Start End Encounter Admission Attending Care Care Encounter Source Date/Time Date/Time Type Type Clinicians Facility Department ID 2020-04-06 2020-04-21 Inpatient Cullen BELTRE [facility] [id number] [facility] 15:00:00 13:04:00 TRISH Alfaro [facility] 2019-08-10 2019-08-10 Outpatient MASDEU, [facility] [id number] 548 [place] 00:00:00 00:00:00 OMEGA [address] 2019-02-17 2019-02-17 Outpatient MARCOS, [facility] [id number] 425 [place] 00:00:00 00:00:00 AIMEE [address] Results Test Description Test Time Test Comments Results Result Comments Source GLUCOMETER GLUCOSE- LAB USE ONLY 2020-04-21 11:12:00 Test Item Value Reference Range Interpretation Comme nts GLUCOMETER (test code = GMG) 107 mg/dL 70-100 H CLEANED METERMeter ID: [id number] tor: 6224 MINE JOSÉ GLUCOMETER GLUCOSE- LAB USE [id number] 07:17:00 Test Item Value Reference Range Interpretation Comments GLUCOMETER (test code 109 mg/dL 70-100 H CLEANE D METERMeter ID: = GMG) [id number] tor: 1331 MARIANNE SCOT T GLUCOMETER GLUCOSE- LAB USE [id number] 19:02:00 Test Item Value Reference Range Interpretation Comments GLUCOMETER (test code 121 mg/dL 70-100 H CLEANE D METERMeter ID: = GMG) [id number] tor: 9867 ERIC Drea KARMALE GLUCOMETER GLUCOSE- LAB USE [id number] 16:33:00 Test Item Value Reference Range Interpretation Comments GLUCOMETER (test code 116 mg/dL 70-100 H CLEANE D METERMeter ID: = GMG) [id number] tor: 6224 MINE ROOSEVELT TS GLUCOMETER GLUCOSE- LAB USE [id number] 11:13:00 Test Item Value Reference Range Interpretation Comments GLUCOMETER (test code 179 mg/dL 70-100 H CLEANE D METERMeter ID: = GMG) [id number] tor: 6224 MINE ROOSEVELT TS GLUCOMETER GLUCOSE- LAB USE [id number] 07:45:00 Test Item Value Reference Range Interpretation Comments GLUCOMETER (test code 109 mg/dL 70-100 H CLEANE D METERMeter ID: = GMG) [id number] tor: 3912 [facility] GLUCOMETER GLUCOSE- LAB USE [id number] 19:21:00 Test Item Value Reference Range Interpretation Comments GLUCOMETER (test code 145 mg/dL 70-100 H CLEANE D METERMeter ID: = GMG) [id number] tor: 3831 FRANCIS MILLS GLUCOMETER GLUCOSE- LAB USE [id number] 16:37:00 Test Item Value Reference Range Interpretation Comments GLUCOMETER (test code 108 mg/dL 70-100 H CLEANE D METERMeter ID: = GMG) [id number] tor: 3912 [facility] GLUCOMETER GLUCOSE- LAB USE [id number] 11:38:00 Test Item Value Reference Range Interpretation Comments GLUCOMETER (test code = 103 mg/dL 70-100 H Mete r ID: GMG) [id number] tor: 6680 ELLEN ANGELFIELD GLUCOMETER GLUCOSE- LAB USE [id number] 07:39:00 Test Item Value Reference Range Interpretation Comments GLUCOMETER (test code 117 mg/dL 70-100 H CLEANE D METERMeter ID: = GMG) [id number] tor: 8413 JERROD SAHU LL GLUCOMETER GLUCOSE- LAB USE [id number] 20:02:00 Test Item Value Reference Range Interpretation Comments GLUCOMETER (test code 109 mg/dL 70-100 H CLEANE D METERMeter ID: = GMG) [id number] tor: 7339 KOSTAS WILLIE SON GLUCOMETER GLUCOSE- LAB USE [id number] 16:34:00 Test Item Value Reference Range Interpretation Comments GLUCOMETER (test code = 98 mg/dL 70-100 TANG MCKENNA METERMeter ID: GMG) [id number] tor: 8280 BREANN SAAVEDRA LTON GLUCOMETER GLUCOSE- LAB USE [id number] 11:34:00 Test Item Value Reference Range Interpretation Comments GLUCOMETER (test code 117 mg/dL 70-100 H CLEANE D METERMeter ID: = GMG) [id number] tor: 8280 BREANN SAAVEDRA LTON GLUCOMETER GLUCOSE- LAB USE [id number] 07:19:00 Test Item Value Reference Range Interpretation Comments GLUCOMETER (test code 139 mg/dL 70-100 H CLEANE D METERMeter ID: = GMG) [id number] tor: 6680 ELLEN Keating [facility] GLUCOMETER GLUCOSE- LAB USE [id number] 19:33:00 Test Item Value Reference Range Interpretation Comments GLUCOMETER (test code 112 mg/dL 70-100 H CLEANE D METERMeter ID: = GMG) [id number] tor: 7339 KOSTAS WILLIE SON GLUCOMETER GLUCOSE- LAB USE [id number] 16:09:00 Test Item Value Reference Range Interpretation Comments GLUCOMETER (test 117 mg/dL 70-100 H Result Not code = GMG) ConfirmedMeter ID: [id number] tor: 4611 TORI DE LA ROSAAN GLUCOMETER GLUCOSE- LAB USE [id number] 07:31:00 Test Item Value Reference Range Interpretation Comments GLUCOMETER (test code = 113 mg/dL 70-100 H Mete r ID: GMG) [id number] tor: 6680 ELLEN ANGELFIELD GLUCOMETER GLUCOSE- LAB USE [id number] 19:39:00 Test Item Value Reference Range Interpretation Comments GLUCOMETER (test code 108 mg/dL 70-100 H CLEANE D METERMeter ID: = GMG) [id number] tor: 04938 SILVIA MARIAI GLUCOMETER GLUCOSE- LAB USE [id number] 16:53:00 Test Item Value Reference Range Interpretation Comments GLUCOMETER (test 111 mg/dL 70-100 H CLEANED MET ERDAILY code = GMG) MAINTENANCEMete r ID: [id number] tor: 4612 CARLOS MARTINI GLUCOMETER GLUCOSE- LAB USE [id number] 11:24:00 Test Item Value Reference Range Interpretation Comments GLUCOMETER (test code 120 mg/dL 70-100 H CLEANE D METERMeter ID: = GMG) [id number] tor: 8280 BREANN SAAVEDRA LTON GLUCOMETER GLUCOSE- LAB USE [id number] 07:16:00 Test Item Value Reference Range Interpretation Comments GLUCOMETER (test 125 mg/dL 70-100 H CLEANED MET ERDAILY code = GMG) MAINTENANCEMete r ID: [id number] tor: 4612 CARLOS MARTINI GLUCOMETER GLUCOSE- LAB USE [id number] 16:51:00 Test Item Value Reference Range Interpretation Comments GLUCOMETER (test code 120 mg/dL 70-100 H CLEANE D METERMeter ID: = GMG) [id number] tor: 1328 ASHLEY MURMarifer HY GLUCOMETER GLUCOSE- LAB USE [id number] 11:38:00 Test Item Value Reference Range Interpretation Comments GLUCOMETER (test code 128 mg/dL 70-100 H CLEANE D METERMeter ID: = GMG) [id number] tor: 8280 BREANN SAAVEDRA LTON GLUCOMETER GLUCOSE- LAB USE [id number] 07:47:00 Test Item Value Reference Range Interpretation Comments GLUCOMETER (test code = 116 mg/dL 70-100 H Mete r ID: GMG) [id number] tor: 8280 BREANN IGLESIAS GLUCOMETER GLUCOSE- LAB USE [id number] 19:07:00 Test Item Value Reference Range Interpretation Comments GLUCOMETER (test code 101 mg/dL 70-100 H CLEANE D METERMeter ID: = GMG) [id number] tor: 67437 SILVIA IYERMBI GLUCOMETER GLUCOSE- LAB USE [id number] 16:49:00 Test Item Value Reference Range Interpretation Comments GLUCOMETER (test code 109 mg/dL 70-100 H CLEANE D METERMeter ID: = GMG) [id number] tor: 9379 LEIGH ANN WRIGHT IEWHITE GLUCOMETER GLUCOSE- LAB USE [id number] 12:06:00 Test Item Value Reference Range Interpretation Comments GLUCOMETER (test code 194 mg/dL 70-100 H CLEANE D METERMeter ID: = GMG) [id number] tor: 3912 [facility] GLUCOMETER GLUCOSE- LAB USE [id number] 07:16:00 Test Item Value Reference Range Interpretation Comments GLUCOMETER (test 117 mg/dL 70-100 H CLEANED MET ERDAILY code = GMG) MAINTENANCEMete r ID: [id number] tor: 4612 CARLOS MARTINI GLUCOMETER GLUCOSE- LAB USE [id number] 22:08:00 Test Item Value Reference Range Interpretation Comments GLUCOMETER (test 144 mg/dL 70-100 H Result Not code = GMG) ConfirmedMeter ID: [id number] tor: 0040 KIERRA KOENIG E GLUCOMETER GLUCOSE- LAB USE [id number] 16:11:00 Test Item Value Reference Range Interpretation Comments GLUCOMETER (test code 138 mg/dL 70-100 H CLEANE D METERMeter ID: = GMG) [id number] tor: 1331 MARIANNE GRANDE T GLUCOMETER GLUCOSE- LAB USE [id number] 11:41:00 Test Item Value Reference Range Interpretation Comments GLUCOMETER (test code 105 mg/dL 70-100 H CLEANE D METERMeter ID: = GMG) [id number] tor: 8413 JERROD SAHU LL GLUCOMETER GLUCOSE- LAB USE [id number] 07:19:00 Test Item Value Reference Range Interpretation Comments GLUCOMETER (test code 128 mg/dL 70-100 H CLEANE D METERMeter ID: = GMG) [id number] tor: 1331 MARIANNE SCOT T GLUCOMETER GLUCOSE- LAB USE [id number] 22:01:00 Test Item Value Reference Range Interpretation Comments GLUCOMETER (test code 103 mg/dL 70-100 H CLEANE D METERMeter ID: = GMG) [id number] tor: 1818 [place] B ADMUS GLUCOMETER GLUCOSE- LAB USE [id number] 16:31:00 Test Item Value Reference Range Interpretation Comments GLUCOMETER (test code 129 mg/dL 70-100 H CLEANE D METERMeter ID: = GMG) [id number] tor: 6224 MINE ALBERT TS GLUCOMETER GLUCOSE- LAB USE [id number] 11:36:00 Test Item Value Reference Range Interpretation Comments GLUCOMETER (test code 106 mg/dL 70-100 H CLEANE D METERMeter ID: = GMG) [id number] tor: 8413 JERROD SAHU LL GLUCOMETER GLUCOSE- LAB USE [id number] 16:33:00 Test Item Value Reference Range Interpretation Comments GLUCOMETER (test code = 109 mg/dL 70-100 H Mete r ID: GMG) [id number] tor: 6680 JANEENRAVENRigoberto [place] GLUCOMETER GLUCOSE- LAB USE [id number] 11:32:00 Test Item Value Reference Range Interpretation Comments GLUCOMETER (test code 111 mg/dL 70-100 H CLEANE D METERMeter ID: = GMG) [id number] tor: 8280 BREANN SAAVEDRA [facility] GLUCOMETER GLUCOSE- LAB USE [id number] 07:10:00 Test Item Value Reference Range Interpretation Comments GLUCOMETER (test code 119 mg/dL 70-100 H CLEANE D METERMeter ID: = GMG) [id number] tor: 6224 MINE ROOSEVELT TS [id number] 06:50:00 Test Item Value Reference Range Interpretation Comments LITHIUM (test code = <0.20 mmol/L 0.60-1.50 L LI) LIH (test code = LIH) LIT HIUM THERAPEUTIC RANGE Acute tanya: 1.0-1.5 mmol/L Gabriel-term control 0.6-1.2 mmol/L Toxic level: > 2.0 mmol/L LIPID [id number] 06:48:00 Test Item Value Reference Range Interpretation Comments CHOLESTROL (test code = 44A) 113 mg/dL 140-200 L TRIGLYCERI (test code = 42B) 88 mg/dL <=149 HDL (test code = 83D) 58.0 mg/dL 40.0-60.0 LDL (test code = 34B) 49 mg/dL <=99 CHL/HDL (test code = CHR) 1.9 0.0-3.4 GLUCOMETER GLUCOSE- LAB USE [id number] 21:10:00 Test Item Value Reference Range Interpretation Comments GLUCOMETER (test code 133 mg/dL 70-100 H CLEANE D METERMeter ID: = GMG) [id number] tor: 7339 KOSTAS WILLIE SON GLUCOMETER GLUCOSE- LAB USE [id number] 16:20:00 Test Item Value Reference Range Interpretation Comments GLUCOMETER (test 106 mg/dL 70-100 H Result Not code = GMG) ConfirmedMeter ID: [id number] tor: 4611 TORI MEDRANO GLUCOMETER GLUCOSE- LAB USE [id number] 11:48:00 Test Item Value Reference Range Interpretation Comments GLUCOMETER (test code 130 mg/dL 70-100 H CLEANE D METERMeter ID: = GMG) [id number] tor: 4611 TORI DE LA ROSA AN VALPROIC ACID (DEPAKENE)2020-04-09 08:50:00 Test Item Value Reference Range Interpretation Comments VALP ACID (test code = 95A) <3.0 ug/mL 50.0-100.0 LL B12 [id number] 08:45:00 Test Item Value Reference Range Interpretation Comments VIT B12 (test code = A60) 625.0 pg/mL 180.0-914.0 [id number] 08:45:00 Test Item Value Reference Range Interpretation Comments FOLATE (test code = A75) 52.2 ng/mL 3.1-17.5 H THYROID PANEL/SCREEN (TSH)2020-04-09 08:33:00 Test Item Value Reference Range Interpretation Comments TSH (test code = A57) 2.110 uIU/mL 0.358-3.740 [id number] 08:31:00 Test Item Value Reference Range Interpretation Comments Hb A1C % (test code 5.7 % 3.8-6.4 = HBA) A1C % (test code = HbA1c (% ) A1C) Reference Range Normal <5.7 Prediabetes 5.7-6.4 Diabetic >=6.5 [id number] 08:24:00 Test Item Value Reference Range Interpretation Comments MAGNESIUM (test code = 48A) 2.2 mg/dL 1.8-2.4 [id number] 08:24:00 Test Item Value Reference Range Interpretation Comments PREALBUMIN (test code = 08E) 17 mg/dL 18-38 L GLUCOMETER GLUCOSE- LAB USE [id number] 08:00:00 Test Item Value Reference Range Interpretation Comments GLUCOMETER (test code 109 mg/dL 70-100 H CLEANE D METERMeter ID: = GMG) [id number] tor: 8413 JERROD SAHU LL GLUCOMETER GLUCOSE- LAB USE [id number] 19:54:00 Test Item Value Reference Range Interpretation Comments GLUCOMETER (test code 112 mg/dL 70-100 H CLEANE D METERMeter ID: = GMG) [id number] tor: 8582 MEKA SHIPLEY WFORD GLUCOMETER GLUCOSE- LAB USE [id number] 16:20:00 Test Item Value Reference Range Interpretation Comments GLUCOMETER (test code 107 mg/dL 70-100 H CLEANE D METERMeter ID: = GMG) [id number] tor: 6224 MINE ALBERT TS GLUCOMETER GLUCOSE- LAB USE [id number] 11:14:00 Test Item Value Reference Range Interpretation Comments GLUCOMETER (test code 124 mg/dL 70-100 H CLEANE D METERMeter ID: = GMG) [id number] tor: 1331 AMPATRICIA SCOT T GLUCOMETER GLUCOSE- LAB USE [id number] 08:08:00 Test Item Value Reference Range Interpretation Comments GLUCOMETER (test 121 mg/dL 70-100 H CLEANED MET ERDAILY code = GMG) MAINTENANCEMete r ID: [id number] tor: 4612 CARLOS MARTINI GLUCOMETER GLUCOSE- LAB USE [id number] 05:24:00 Test Item Value Reference Range Interpretation Comments GLUCOMETER (test code 120 mg/dL 70-100 H CLEANE D METERMeter ID: = GMG) [id number] tor: 7320 RUDI Guzman DRUGS OF [id number] 19:05:00 Test Item Value Reference Range Interpretation Comments DRUG SCRN (test code URINE DRUG SCREEN = HDOA) This is an unconfirmed screening result and should not be used for non-medical purposes CANNABINOD (test code Negative NEGATIVE = 88C) AMPHETAMINE (test Negative NEGATIVE code = 84A) BENZODIAZP (test code POSITIVE NEGATIVE A = 86A) BARBITURAT (test code Negative NEGATIVE = 85A) OPIATES (test code = Negative NEGATIVE 92B) COCAINE (test code = Negative NEGATIVE 87A) PHENCYCLID (test code Negative NEGATIVE = 66A) METHADONE (test code Negative NEGATIVE = 64A) DOAH (test code = DOAH.) *URINE DRUG SCREEN Cut-off values are as follows: Cannabinoids 50 ng/mL Cocaine 300 ng/mL Amphetamines 1000 ng/mL Phencyclidine 25 ng/mL Benzodiazepines 200 ng.mL Methadone 300 ng/mL Barbiturates 200 ng/mL Opiates 2000 ng/mL URINALYSIS WITH [id number] 18:52:00 Test Item Value Reference Range Interpretation Comments COLOR (test code = COLU) YELLOW YELLOW CLARITY (test code = CLA) CLEAR CLEAR GLUCOSE UR (test code = UA GLUCOSE) NEGATIVE NEGATIVE BILI UR (test code = BILE) NEGATIVE NEGATIVE KETONES UR (test code = NIALL) NEGATIVE NEGATIVE SP GRAVITY (test code = SPGR) 1.014 1.005-1.030 PH UR (test code = PH) 6.0 4.5-8.0 PROTEIN UR (test code = PU) NEGATIVE NEGATIVE UROBIL UR (test code = UROQ) 0.2 EU/dL 0.2-1.0 NITRITE UR (test code = NITRITE) NEGATIVE NEGATIVE BLOOD UR (test code = UA BLOOD) NEGATIVE NEGATIVE LEUK ES UR (test code = LEUK) TRACE NEGATIVE A WBC UR (test code = UWBC) 3 /HPF 0-5 RBC UR (test code = URBC) 0 /HPF 0-2 EPITH UR (test code = UEPC) FEW /LPF FEW BACTERIA UR (test code = UBACT) NONE /HPF NONE CAST UR (test code = CAST) /LPF NONE CRYSTAL UR (test code = CRYU) / LPF NONE MUCUS UR (test code = MUC) / HPF NONE AMORPH UR (test code = ARLETH) / HPF NONE TRICH UR (test code = UTRICH) /HPF NONE YEAST UR (test code = UY) /HPF NONE SPERM UR (test code = USPERM) /HPF NONE [id number] 17:31:00 Test Item Value Reference Range Interpretation Comments ACETAMINPH (test code = 94M) <2.0 ug/mL 10.0-30.0 L [id number] 17:07:00 Test Item Value Reference Range Interpretation Comments SALICYLATE (test code = 94B) <1.7 mg/dL 2.8-20.0 L C-REACTIVE PROTEIN [id number] 17:07:00 Test Item Value Reference Range Interpretation Comments CRP QUANT (test code 3.3 mg/L 0.0-2.9 H = CRPQ) Method Change (test Please note the code = METHOD) change in Method and the reference range ALCOHOL BLOOD (ETOH)2020-04-06 17:05:00 Test Item Value Reference Range Interpretation Comments ETOH (test code = HALC) ETHANOL The result is to be used only for medical purposes ALCOHOL (test code = <10 mg/dL <=10 56A) COMPREHENSIVE METABOLIC [id number] 16:57:00 Test Item Value Reference Range Interpretation Comments GLUCOSE (test code = 102 mg/dL 75-100 H 06D) SODIUM (test code = 141 mmol/L 136-145 01A) POTASSIUM (test code = 4.0 mmol/L 3.6-5.1 01B) CHLORIDE (test code = 107 mmol/L 98-107 04A) CO2 (test code = 02A) 27 mmol/L 22-32 ANION GAP (test code = 11.0 mmol/L ANG) BUN (test code = 05D) 14 mg/dL 7-18 CREATININE (test code 0.9 mg/dL 0.4-1.1 = 03E) GFR (test code = GFR) 68 mL/min/1.73m\S\2 >=90 L GFR 79 mL/min/1.73m\S\2 >=90 L (test code = GFRAA) EGFR (test code = eGFR BY CKD-EPI EGFR) CALCULATION IS NOT RECOMMENDED FOR PATIENTS UNDER 18 YEARS OF AGE. BUN/CREA (test code = 16 12-20 BCR) CALCIUM (test code = 9.4 mg/dL 8.3-9.5 09D) BILI TOTAL (test code 0.6 mg/dL 0.2-1.0 = 11A) PROTEIN (test code = 7.0 g/dL 6.4-8.2 07D) ALBUMIN (test code = 4.1 g/dL 3.5-4.8 08D) GLOBULIN (test code = 2.9 g/dL 1.5-3.8 GLB) ALB/GLOB (test code = 1.4 1.0-2.6 AGRR) ALK PHOS (test code = 62 IU/L 42-121 35A) AST (test code = 30A) 19 IU/L <=42 ALT (test code = 31A) 30 IU/L <=78 LIVER [id number] 16:57:00 Test Item Value Reference Range Interpretation Comments BILI TOTAL (test code = 11A) 0.6 mg/dL 0.2-1.0 BILI DIRCT (test code = 12A) 0.1 mg/dL 0.0-0.2 BILI INDIR (test code = BILII) 0.5 mg/dL <=0.8 PROTEIN (test code = 07D) 7.0 g/dL 6.4-8.2 ALBUMIN (test code = 08D) 4.1 g/dL 3.5-4.8 GLOBULIN (test code = GLB) 2.9 g/dL 1.5-3.8 ALB/GLOB (test code = AGRR) 1.4 1.0-2.6 ALK PHOS (test code = 35A) 62 IU/L 42-121 AST (test code = 30A) 19 IU/L <=42 ALT (test code = 31A) 30 IU/L <=78 AMYLASE AND [id number] 16:57:00 Test Item Value Reference Range Interpretation Comments AMYLASE (test code = 10A) 35 U/L 28-100 LIPASE (test code = 60A) 234 IU/L 73-393 [id number] 16:57:00 Test Item Value Reference Range Interpretation Comments CPK (test code = 32A) 287 IU/L 26-192 H [id number] 16:57:00 Test Item Value Reference Range Interpretation Comments FERRITIN (test code = A19) 108.3 ng/mL 8.0-252.0 LDH-LACTIC [id number] 16:57:00 Test Item Value Reference Range Interpretation Comments LDH (test code = 33A) 279 IU/L 84-246 H [id number] 16:56:00 Test Item Value Reference Range Interpretation Comments D-DIMER (test code = 558 ng/mL D-DU 0-234 H DDI) D-DIMER COMMENT (test *Level to rule out code = DDCOM) DVT or PE: <235 ng/mL D-DU* SARS-CoV (RAPID ANTIGEN)2020-04-06 16:56:00 Test Item Value Reference Range Interpretation Comments SARS-CoV (ANTIGEN) NEGATIVE NEGATIVE (test code = COVAG) COVID AG (test This test has been code = COVAGC) marketed under the FDA Emergency Use Authorization (EUA) to meet challenges of the COVID-19 pandemic. The validation standards normally enforced by the FDA and the [employer] the [place] [employer] (CAP) are more stringent than those required for this test. Therefore, the result should be interpreted with caution and close attention to other clinical and epidemiological data CARDIAC [id number] 16:55:00 Test Item Value Reference Range Interpretation Comments TROPONIN I (test code = A84) <0.015 ng/mL 0.000-0.045 AMMONIA [id number] 16:54:00 Test Item Value Reference Range Interpretation Comments AMMONIA (test code = 54A) 18 umol/L 11-32 PRO TIME AND [id number] 16:47:00 Test Item Value Reference Range Interpretation Comments PT (test code = 11.2 s 9.8-13.6 TT) INR (test code = 1.0 INR) INRH (test code = SUGGESTED INRH) THERAPEUTIC RANGE FOR INR: 2.5 - 3.5 For Patients with Prosthetic Valves or Patients with recurrent Thromboembolic Events 2.0 - 3.0 For Most Other Applications PTT (test code = 32.9 s 20.2-38.0 PTT) PTTH (test code = To monitor the PTTH) effectiveness of heparin, we offer the Anti-Xa (Heparin Assay). It can be used for either unfractionated or LMW Heparin. Order Code is ANTI-XA CBC (INCLUDES AUTOMATED DIFFERENTIAL)2020-04-06 16:38:00 Test Item Value Reference Range Interpretation Comments WBC (test code = WBC) 6.2 10\S\3/uL 4.5-11.0 RBC (test code = RBC) 4.39 10\S\6/uL 3.80-5.80 HGB (test code = HBG) 12.6 g/dL 12.0-15.5 HCT (test code = HCT) 37.9 % 35.0-44.0 MCV (test code = MCV) 86.3 fL 81.0-99.0 MCH (test code = MCH) 28.7 pg 27.0-31.0 MCHC (test code = MCHC) 33.2 g/dL 32.0-36.0 RDW (test code = RDW) 13.0 % 11.5-14.5 PLT (test code = PLT) 313 10\S\3/uL 130-400 MPV (test code = MPV) 9.4 fL 9.4-12.4 NEUTROP # (test code = NE#) 4.1 10\S\3/uL 1.6-8.0 LYMPH # (test code = LY#) 1.4 10\S\3/uL 1.1-3.5 MONOCYTE # (test code = MO#) 0.5 10\S\3/uL 0.0-1.1 EOSINOPH # (test code = EO#) 0.2 10\S\3/uL 0.0-0.7 BASOPHIL # (test code = BA#) 0.0 10\S\3/uL 0.0-0.3 IG # (test code = IG#) 0.01 10\S\3/uL 0.00-0.06 NRBC # (test code = NRBC#) 0.00 10\S\3/uL 0.00-0.01 NEUTROPH % (test code = NE%) 65.9 % 35.0-73.0 LYMPH % (test code = LY%) 22.7 % 20.0-55.0 MONO % (test code = MO%) 8.5 % 2.5-10.0 EOSINOPH % (test code = EO%) 2.4 % 0.0-5.0 BASOPHIL % (test code = BA%) 0.3 % 0.0-2.0 IG % (test code = IG%) 0.2 % 0.0-0.8 NRBC% (test code = NRBC%) 0.0 % 0.0-0.2 MANDIFF (test code = MDIFF) NO RBC MORPH (test code = RBCMOR) NORMAL Urinalysis, automated with [id number] 04:38:00 Test Item Value Reference Range Interpretation Comments Color, UA (test code YELLOW YELLOW = 5778-6) Appearance (test CLEAR CLEAR code = 5767-9) Specific gravity, 1.013 1.001-1.035 urine (test code = 5811-5) pH, urine (test code < OR = 5.0 5.0-8.0 = 5803-2) Glucose, urine (test NEGATIVE NEGATIVE code = 16832-4) Bilirubin, UA (test NEGATIVE NEGATIVE code = 5770-3) Ketones, UA (test NEGATIVE NEGATIVE code = 2514-8) Occult blood, urine NEGATIVE NEGATIVE (test code = 5794-3) Protein, UA (test NEGATIVE NEGATIVE code = 54514-8) Nitrite, UA (test NEGATIVE NEGATIVE code = 5802-4) Leukocyte esterase, TRACE NEGATIVE A UA (test code = 5799-2) WBC, UA (test code = NONE SEEN See_Comment [Autom ated 5821-4) message] The system which generated this result transmitted reference range : < OR = 5 /HPF. The reference range was not used to interpr et this result as normal/abnormal . RBC, UA (test code = 0-2 See_Comment [Autom ated 81998-2) message] The system which generated this result transmitted reference range : < OR = 2 /HPF. The reference range was not used to interpr et this result as normal/abnormal . Squamous epithelial NONE SEEN See_Comment [Automa cells, UA (test code message ] The = 22355-0) system which generated this result transmitted reference range : < OR = 5 /HPF. The reference range was not used to interpr et this result as normal/abnormal . Bacteria, UA (test NONE SEEN NONE SEEN /HPF code = 5769-5) Hyaline casts, UA NONE SEEN NONE SEEN /LPF (test code = 5796-8) MEEK (test code = SPLIT 04/04/2020 MEEK) FROM [id number] RAC (test code = Performing RAC) Organization Information: Site ID: RGA Name: [facility] Address: [address] [place] [id number] Director: Alexis Schroeder Lab Interpretation Abnormal (test code = 88950-1) [facility] [id number] 01:22:00 Test Item Value Reference Interpretation Comments Range Glucose (test code 114 mg/dL 65-139 N on-fasting = 2345-7) reference inter casie BUN (test code = 19 mg/dL 7-25 3094-0) Creatinine (test 1.02 mg/dL 0.5-0.99 H For patient s >49 code = 2160-0) years of age, the reference limit for Creatinine is approximately 1 3% higher for peopleidentifie d as -Nelly n. EGFR Non-Afr. 57 See_Comment L [Automated me ssage] Far[place]ese (test code The syst em which = 9645) generated this result transmit reference range : > OR = 60 mL/min/1.73m2. The reference range was not used to interpret this result as normal/abnormal . EGFR 66 See_Comment [Automated mes abraham] Faroese (test code The syst em which = 15619-2) generated this result transmit reference range : > OR = 60 mL/min/1.73m2. The reference range was not used to interpret this result as normal/abnormal . BUN/creatinine 19 See_Comment [Automated m essage] ratio (test code = The syste m which 3097-3) generated this result transmit reference range : 6 - 22 (calc). The reference range was not used to interpret this result as normal/abnormal . Sodium (test code = 141 mmol/L 129-590 4195-2) Potassium (test 4.0 mmol/L 3.5-5.3 code = 2823-3) Chloride (test code 104 mmol/L 98-110 = 2075-0) CO2 (test code = 30 mmol/L 20-32 2027-9) Calcium (test code 9.3 mg/dL 8.6-10.4 = 66004-1) Protein (test code 6.4 g/dL 6.1-8.1 = 2885-2) Albumin, S (test 4.2 g/dL 3.6-5.1 code = 1751-7) Globulin, total 2.2 See_Comment [Automated message] (test code = The system [place] [address]-5) generated this result transmit reference range : 1.9 - 3.7 g/dL (denise c). The reference r shreya was not used to interpret this result as normal/abnormal . Albumin/globulin 1.9 See_Comment [Automated message] ratio (test code = The syste m which 1759-0) generated this result transmit reference range : 1.0 - 2.5 (calc). T he reference range was not used to interpret this result as normal/abnormal . Total bilirubin 0.4 mg/dL 0.2-1.2 (test code = 1975-2) Alkaline 47 U/L 37-153 phosphatase (test code = 6768-6) AST (test code = 18 U/L 10-35 1920-8) ALT (test code = 16 U/L 6-29 1742-6) MEEK (test code = FASTING:NOPATIENT MEEK) UNABLE TO VOID; ADVISED TO RETURN FOR COLLECTION.FASTIN G: NO RAC (test code = Performing RAC) Organization Information: Site ID: [facility] Address: [address] [place] [id number] Director: Alexis Schroeder Lab Interpretation Abnormal (test code = 76981-5) [facility] with platelet and [id number] 01:22:00 Test Item Value Reference Range Interpretation Comments WBC (test code = 7.1 See_Comment [Automated 1390-2) message] The system which generated this result transmitted reference range : 3.8 - 10.8 Thousand/uL. Th e reference range was not used to interpret this result as normal/abnormal . RBC (test code = 4.16 See_Comment [Automated 419-8) message] The system which generated this result transmitted reference range : 3.80 - 5.10 Million/uL. The reference range was not used to interpret this result as normal/abnormal . HGB (test code = 12.1 g/dL 11.7-15.5 718-7) HCT (test code = 36.5 % 35-45 4544-3) MCV (test code = 87.7 fL 80-100 787-2) MCH (test code = 29.1 pg 27-33 785-6) MCHC (test code = 33.2 g/dL 32-36 786-4) RDW (test code = 12.5 % 11-15 788-0) Platelet count 287 See_Comment [Automated (test code = message] The 777-3) system which generated this result transmitted reference range : 140 - 400 Thousand/uL. Th e reference range was not used to interpret this result as normal/abnormal . MPV (test code = 9.8 fL 7.5-12.5 776-5) Neutrophils, 4821 See_Comment [Automated absolute (test message] The code = 751-8) system which generated this result transmitted reference range : 1,500 - 7,800 cells/uL. The reference range was not used to interpret this result as normal/abnormal . Lymphocytes, 1328 See_Comment [Automated absolute (test message] The code = 731-0) system which generated this result transmitted reference range : 850 - 3,900 cells/uL. The reference range was not used to interpret this result as normal/abnormal . Monocytes, 802 See_Comment [Automated absolute (test message] The code = 742-7) system which generated this result transmitted reference range : 200 - 950 cells/uL. The reference range was not used to interpret this result as normal/abnormal . Eosinophils, 121 See_Comment [Automated absolute (test message] The code = 711-2) system which generated this result transmitted reference range : 15 - 500 cells/uL. The reference range was not used to interpret this result as normal/abnormal . Basophils, 28 See_Comment [Automated absolute (test message] The code = 704-7) system which generated this result transmitted reference range : 0 - 200 cells/u L. The reference range was not used to interpr et this result as normal/abnormal . Neutrophils (test 67.9 % code = 770-8) Lymphocytes (test 18.7 % code = 736-9) Monocytes (test 11.3 % code = 5905-5) Eosinophils (test 1.7 % code = 713-8) Basophils + RC 0.4 % (test code = 706-2) MEEK (test code = FASTING:NOPATIENT MEEK) UNABLE TO VOID; ADVISED TO RETURN FOR COLLECTION.FASTING: NO RAC (test code = Performing RAC) Organization Information: Site ID: [facility] Address: [address] [place] [phone] Director: Alexis Carrero
--- NOTE | 2020-04-30 17:36 | RAD REPORT ---
EXAM DESCRIPTION: CT - Head C Spine Mpr Wo Con - 04/30/2020 5:13 pm CLINICAL HISTORY: Head and neck injury status post fall. Head and neck pain COMPARISON: [address] TECHNIQUE: Computed axial tomography of the head and cervical spine was obtained. Sagittal and coronal reconstruction was performed. All CT scans are performed using dose optimization technique as appropriate and may include automated exposure control or mA/KV adjustment according to patient size. FINDINGS: An intracranial bleed is not seen. The ventricles are normal in caliber. An extra-axial fl uid collection is not noted.Fluid within the visualized sinuses and mastoids is not seen A cervical fracture is not visualized. No dislocation is noted. Spondylosis involves the cervical spi ne resulting in mild central moderate foraminal stenosis IMPRESSION: No acute intracranial abnormality is seen. A cervical fracture is not visualized. If the patient continues to have symptoms to suggest intracra nial /spinal cord pathology then MRI would be recommended
--- NOTE | 2020-04-30 17:50 | RAD REPORT ---
EXAM DESCRIPTION: [facility] Single View04/30/2020 5:27 pm CLINICAL HISTORY: Chest pain COMPARISON: 2019 FINDINGS: The lungs appear clear of acute infiltrate. The heart is normal size. IMPRESSION: No acute abnormalities displayed
[2020-04-30 17:53] LABS: Urine Amorphous Sediment 3+ /HPF (NONE SEEN); Urine Bacteria <20 /HPF (<20); Urine Mucus HEAVY /HPF (NONE SEEN); Urine RBC >50 /HPF (NONE SEEN)
[2020-04-30 18:30] LABS: Urine Blood 3+ (NEG); Urine Glucose NEGATIVE (NEG); Urine Protein 2+ (NEG); Urine Specific Gravity >1.030 (1.005-1.030)
[2020-04-30 18:39] LABS: Basophils % 0.3 % (0-1.3); Lymphocytes % 17.1 % (15.3-44.8); RBC Red Blood Cell Count 4.16 M/uL (3.86-4.86)
[2020-04-30 18:40] LABS: Protime INR 1.02
[2020-04-30 19:08] LABS: ALT/SGPT 24 U/L (12-78); AST/SGOT 24 U/L (15-37); Albumin 3.4 g/dL (3.4-5.0); Alkaline Phosphatase 52 U/L (45-117); BUN Blood Urea Nitrogen 18 mg/dL (7-18); Bicarbonate 26 mmol/L (21-32); Bilirubin Direct 0.1 mg/dL (0-0.2); Bilirubin Total 0.4 mg/dL (0.2-1.0); Glucose Level 96 mg/dL (74-106); Magnesium 2.4 mg/dL (1.8-2.4); NT PRO-BNP 46 pg/mL (<125); Potassium 3.8 mmol/L (3.5-5.1); Protein, Total 6.6 g/dL (6.4-8.2); Sodium Level 144 mmol/L (136-145); Troponin (Emerg Dept Use Only) < 0.02 ng/mL (0.0-0.045)
[2020-04-30] MEDS ORDERED: NA CHLORIDE 0.9% 1,000 ML ONE (19:27)
--- NOTE | 2020-04-30 20:31 | ER ---
Nurse's Notes [facility] Name: Ariella Ignacio Age: 69 yrs Sex: Female : 1950 Arrival Date: 04/30/2020 Time: 16:24 Bed 16 Private MD: Diagnosis: Alzheimer's disease, unspecified;Dementia in other diseases classified elsewhere;Fall from bed;Superficial injury of head Presentation: 04/30 16:31 Chief complaint: Spouse and/or significant other states: Fell out of bed Thursday ll1 night. Didn't notice any injuries. Noticed lethargic and weak since yesterday. Took her outside today, and noticed old bruising to R side of forehead. Still lethargic, weak, and out of it. Coronavirus screen: Client denies travel out of the [place] in the last 14 days. At this time, the client does not indicate any symptoms associated with coronavirus-19. Ebola Screen: Patient denies travel to an Ebola-affected area in the 21 days before illness onset. Initial Sepsis Screen: Does the patient meet any 2 criteria? No. Patient's initial sepsis screen is negative. Does the patient have a suspected source of infection? Yes: Other: head injury. Risk Assessment: Do you want to hurt yourself or someone else? Patient reports no desire to harm self or others. Onset of symptoms was April 28, 2020. 16:31 Method Of Arrival: Wheelchair ll1 16:31 Acuity: JENNIFER 2 ll1 Historical: - Allergies: 16:33 Ceclor; ll1 - PMHx: 16:33 Alzheimers; Dementia; ll1 - PSHx: 16:33 lapband; ll1 - Immunization history:: Flu vaccine is up to date. - Social history:: Smoking status: Patient denies any tobacco usage or history of. Screenin:00 Abuse screen: Denies threats or abuse. Nutritional screening: No deficits noted. jb4 Tuberculosis screening: No symptoms or risk factors identified. Fall Risk Fall in past 12 months (25 points). IV access (20 points). Mental Status- Overestimates/Forgets Limitations (15 pts.). Total Huntley Fall Scale indicates High Risk Score (45 or more points). Fall prevention measures have been instituted. Side Rails Up X 2 Placed Close to Nursing Station Frequent Obs/Assessments Occuring Family Present and informed to notify staff if the need to leave the bedside As available patient and family educated on Fall Prevention Program and Strategies. Assessment: 19:00 General: Appears in no apparent distress. uncomfortable, Behavior is calm, cooperative. jb4 Pain: Denies pain. Neuro: Level of Consciousness is awake, alert, obeys commands, Oriented to person. Cardiovascular: Patient's skin is warm and dry. Respiratory: Airway is patent Respiratory effort is even, unlabored, Respiratory pattern is regular, symmetrical. GI: No signs and/or symptoms were reported involving the gastrointestinal system. : No signs and/or symptoms were reported regarding the genitourinary system. EENT: No signs and/or symptoms were reported regarding the EENT system. Derm: Skin is intact, Skin is pink, warm \T\ dry. Musculoskeletal: Circulation, motion, and sensation intact. Range of motion: intact in all extremities. 20:00 Reassessment: Patient appears in no apparent distress at this time. No changes from jb4 previously documented assessment. Patient and/or family updated on plan of care and expected duration. Pain level reassessed. 21:15 Reassessment: Patient appears in no apparent distress at this time. Patient and/or jb4 family updated on plan of care and expected duration. Pain level reassessed. PT remains alert and oriented x1 to self. verbalized understanding of d/c and follow up instructions. Denies questions or concerns. Vital Signs: 16:31 BP 102 / 68; Pulse 80; Resp 18; Temp 97.6; Pulse Ox 94% ; Weight 99.79 kg; Height 5 ft. ll1 6 in. (167.64 cm); Pain 0/10; 18:40 BP 124 / 72; Pulse 77; Resp 16; Temp 97.9(TE); Pulse Ox 98% ; mh5 21:00 BP 128 / 68; Pulse 80; Resp 16; Pulse Ox 98% on R/A; jb4 16:31 Body Mass Index 35.51 (99.79 kg, 167.64 cm) ll1 ED Course: 16:24 Patient arrived in ED. ds1 16:30 Arm band placed on. ll1 16:33 Triage completed. ll1 16:34 Sheldon Benito NP is PHCP. pm1 16:34 Bernabe Middleton MD is Attending Physician. pm1 16:34 Patient placed in an exam room, on a stretcher. ll1 16:35 Christina Robert, RN is Primary Nurse. dm14 17:06 Urine collected: straight cath specimen, cloudy. Speci-cath kit inserted, using sterile mh5 technique, 16 Fr., specimen obtained. 17:07 Patient has correct armband on for positive identification. Placed in gown. Bed in low mh5 position. Call light in reach. Side rails up X2. Adult w/ patient. Warm blanket given. quality assurance monitor body on. Pulse ox on. NIBP on. 17:08 Urine Microscopic Only Sent. mh5 17:12 CT Head C Spine In Process Unspecified. EDMS 17:27 XRAY Chest (1 view) In Process Unspecified. EDMS 18:40 Missed attempt(s): 22 gauge in left in right forearm. antecubital area. 5 18:42 EKG done, by ED staff, reviewed by Bernabe Middleton MD. 5 18:43 Inserted saline lock: 24 gauge in right hand, using aseptic technique. Blood collected. 5 18:43 Lactate Sent. 5 18:43 Procalcitonin Sent. 5 18:44 NT PRO-BNP Sent. 5 18:44 Basic Metabolic Panel Sent. 5 18:44 LFT's Sent. 5 18:44 Magnesium Sent. 5 18:44 PT-INR Sent. 5 18:44 Troponin (emerg Dept Use Only) Sent. mh5 20:28 Primary Nurse role handed off by Christina Robert, RN ar5 21:15 No provider procedures requiring assistance completed. IV discontinued, intact, jb4 bleeding controlled, No redness/swelling at site. Pressure dressing applied. Administered Medications: 19:15 Drug: NS 0.9% 1000 ml Route: IV; Rate: 1000 ml; Site: right hand; jb4 21:15 Follow up: Response: No adverse reaction; IV Status: Completed infusion; IV Intake: jb4 1000ml Intake: 21:15 IV: 1000ml; Total: 1000ml. jb4 Outcome: 20:31 Discharge ordered by . pm1 21:14 Patient left the ED. bb 21:15 Discharged to home via wheelchair, with family. jb4 21:15 Condition: stable 21:15 Discharge instructions given to significant other, Instructed on discharge instructions, follow up and referral plans. Demonstrated understanding of instructions, follow-up care. Signatures: Dispatcher [employer] SARAH CoronelDelmyi ds1 Dominique Gr RN RN bb Sheldon Benito, LEAD SHIPPER LEAD SHIPPER pm1 Luis Fernando Dukes RN RN jb4 Alicia Zapien 5 Loan Butcher ar5 Jose Ortega RN RN ll1 Christina Robert RN RN dm14 Corrections: (The following items were deleted from the chart) 18:42 18:40 Pulse 77bpm; Resp 16bpm; Pulse Ox 98%; Temp 97.9F Temporal; mh5 mh5
--- NOTE | 2020-04-30 20:31 | EDPHYS ---
Physician Documentation [facility] Name: Ariella Ignacio Age: 69 yrs Sex: Female : 1950 Arrival Date: 04/30/2020 Time: 16:24 Bed 16 Private MD: ED Physician Bernabe Middleton HPI: 04/30 17:06 This 69 yrs old Female presents to ER via Wheelchair with complaints of Head pm1 Injury. 17:06 Onset: The symptoms/episode began/occurred Patient rolled out of bed and hit her head pm1 on Thursday two times. did not notice any bruising or bleeding at that time. The following day she started having decreased energy. Today he took her out for a walk and in the sunlight he noticed a bruise to her right forehead. Associated signs and symptoms: Pertinent negatives: cough, diarrhea, shortness of breath, vomiting. Patient with a history of Alzheimer's and Dementia. Historical: - Allergies: 16:33 Ceclor; ll1 - PMHx: 16:33 Alzheimers; Dementia; ll1 - PSHx: 16:33 lapband; ll1 - Immunization history:: Flu vaccine is up to date. - Social history:: Smoking status: Patient denies any tobacco usage or history of. ROS: 17:06 ENT: Negative for injury, pain, and discharge, Neck: Negative for injury, pain, and pm1 swelling, Cardiovascular: Negative for chest pain, palpitations, and edema, Respiratory: Negative for shortness of breath, cough, wheezing, and pleuritic chest pain. 17:06 Abdomen/GI: Negative for abdominal pain, nausea, vomiting, diarrhea, and constipation, Back: Negative for injury and pain, MS/Extremity: Negative for injury and deformity, Neuro: Negative for headache, weakness, numbness, tingling, and seizure. 17:06 Constitutional: Positive for malaise, decreased PO intake, Negative for fever. 17:06 Skin: Positive for ecchymosis, of the right side of forehead. Exam: 17:06 Constitutional: This is a well developed, well nourished patient who is awake, alert, pm1 and in no acute distress. 17:06 Eyes: Pupils equal round and reactive to light, extra-ocular motions intact. Lids and lashes normal. Conjunctiva and sclera are non-icteric and not injected. Cornea within normal limits. Periorbital areas with no swelling, redness, or edema. ENT: Nares patent. No nasal discharge, no septal abnormalities noted. Tympanic membranes are normal and external auditory canals are clear. Oropharynx with no redness, swelling, or masses, exudates, or evidence of obstruction, uvula midline. Mucous membranes moist. Neck: Trachea midline, no thyromegaly or masses palpated, and no cervical lymphadenopathy. Supple, full range of motion without nuchal rigidity, or vertebral point tenderness. No Meningismus. Chest/axilla: Normal chest wall appearance and motion. Nontender with no deformity. No lesions are appreciated. 17:06 Back: No spinal tenderness. No costovertebral tenderness. Full range of motion. 17:06 Head/face: Noted is no obvious of injury or deformity except contusion, that is superficial, of the right side of forehead, yellow-brownish bruise present. 17:06 Cardiovascular: Rate: normal, Rhythm: regular, Pulses: no pulse deficits are appreciated. 17:06 Respiratory: Exam negative for acute changes, respiratory distress, shortness of breath. 17:06 Abdomen/GI: Inspection: abdomen appears normal, Palpation: abdomen is soft and non-tender, in all quadrants. 17:06 Skin: Appearance: normal except for affected area, injury, contusion(s), that are superficial, of the right side of forehead. 17:06 Neuro: Orientation: to person, place, Mentation: able to follow commands, slow to respond, Motor: is normal, moves all fours, Sensation: is normal, no obvious gross deficits. Vital Signs: 16:31 BP 102 / 68; Pulse 80; Resp 18; Temp 97.6; Pulse Ox 94% ; Weight 99.79 kg; Height 5 ft. ll1 6 in. (167.64 cm); Pain 0/10; 18:40 BP 124 / 72; Pulse 77; Resp 16; Temp 97.9(TE); Pulse Ox 98% ; mh5 21:00 BP 128 / 68; Pulse 80; Resp 16; Pulse Ox 98% on R/A; jb4 16:31 Body Mass Index 35.51 (99.79 kg, 167.64 cm) ll1 MDM: 16:43 Patient medically screened. pm1 20:30 Data reviewed: vital signs. Data interpreted: Pulse oximetry: on room air is 98 %. pm1 Interpretation: normal. Counseling: I had a detailed discussion with the patient and/or guardian regarding: the historical points, exam findings, and any diagnostic results supporting the discharge/admit diagnosis, lab results, radiology results, the need for outpatient follow up, to return to the emergency department if symptoms worsen or persist or if there are any questions or concerns that arise at home. 20:30 ED course: Blood work and urine within normal limits, no acute changes to CT head, pm1 chest x-ray. Impression worsening of patient Alzheimer's and dementia. Discussed with and he agrees with assessment and will follow up with her neurologist. 04/30 16:46 Order name: NT PRO-BNP; Complete Time: 19:23 pm1 04/30 16:46 Order name: Basic Metabolic Panel; Complete Time: 19:23 pm1 04/30 16:46 Order name: CBC with Diff; Complete Time: 18:55 pm1 04/30 16:46 Order name: LFT's; Complete Time: 19:23 pm1 04/30 16:46 Order name: Magnesium; Complete Time: 19:23 pm1 04/30 16:46 Order name: PT-INR; Complete Time: 18:55 pm1 04/30 16:44 Order name: CT Head C Spine; Complete Time: 17:58 pm1 04/30 16:46 Order name: Troponin (emerg Dept Use Only); Complete Time: 19:23 pm1 04/30 16:46 Order name: XRAY Chest (1 view); Complete Time: 17:58 pm1 04/30 16:46 Order name: Urine Microscopic Only; Complete Time: 17:58 pm1 04/30 16:47 Order name: Procalcitonin; Complete Time: 19:23 pm1 04/30 16:47 Order name: Lactate; Complete Time: 19:01 pm1 04/30 17:21 Order name: Urine Dipstick--Ancillary (enter results); Complete Time: 18:34 bd 04/30 16:46 Order name: EKG; Complete Time: 16:49 pm1 04/30 16:46 Order name: Cardiac monitoring; Complete Time: 17:08 pm1 04/30 16:46 Order name: EKG - Nurse/Tech; Complete Time: 17:08 pm1 04/30 16:46 Order name: IV Saline Lock; Complete Time: 18:44 pm1 04/30 16:46 Order name: Labs collected and sent; Complete Time: 18:44 pm1 04/30 16:46 Order name: O2 Per Protocol; Complete Time: 17:36 pm1 04/30 16:46 Order name: O2 Sat Monitoring; Complete Time: 17:36 pm1 04/30 16:46 Order name: Urine Dipstick-Ancillary (obtain specimen); Complete Time: 17:08 pm1 04/30 16:46 Order name: Straight Cath - Urine; Complete Time: 17:33 pm1 Administered Medications: 19:15 Drug: NS 0.9% 1000 ml Route: IV; Rate: 1000 ml; Site: right hand; jb4 21:15 Follow up: Response: No adverse reaction; IV Status: Completed infusion; IV Intake: jb4 1000ml Disposition: 04/30/20 20:31 Discharged to Home. Impression: Alzheimer's disease, unspecified, Dementia in other diseases classified elsewhere, Fall from bed, Superficial injury of head. - Condition is Stable. - Discharge Instructions: Dementia, Head Injury, Adult, Alzheimer Disease Caregiver Guide. - Medication Reconciliation Form, Thank You Letter, Antibiotic Education, Prescription Opioid Use form. - Follow up: Emergency Department; When: As needed; Reason: Worsening of condition. Follow up: Private Physician; When: 2 - 3 days; Reason: Recheck today's complaints, Continuance of care, Re-evaluation by your physician. - Problem is new. - Symptoms have improved. Addendum: 05/02/2020 07:05 Co-signature as Attending Physician, Bernabe Middleton MD. r n Signatures: Dispatcher [employer] EDDominique Aguila RN RN bb Nieto, Roman, MD MD rn Marinas, Patrick, ROBBY TAPE COATER pm1 Luis Fernando Dukes RN RN jb4 Jose Ortega RN RN ll1 Corrections: (The following items were deleted from the chart) 04/30 21:14 20:31 04/30/2020 20:31 Discharged to Home. Impression: Alzheimer's disease, bb unspecified; Dementia in other diseases classified elsewhere; Fall from bed; Superficial injury of head. Condition is Stable. Forms are Medication Reconciliation Form, Thank You Letter, Antibiotic Education, Prescription Opioid Use. Follow up: Emergency Department; When: As needed; Reason: Worsening of condition. Follow up: Private Physician; When: 2 - 3 days; Reason: Recheck today's complaints, Continuance of care, Re-evaluation by your physician. Problem is new. Symptoms have improved. pm1
[2020-04-30 23:05] VITALS: BP 124/72; TEMP 97.9; O2SAT 98
--- NOTE | 2020-05-02 | EKG ---
Test Date: 2020-04-30 Test Time: 17:35:03 Nail Tech: JUAN LUIS MEASUREMENT RESULTS: Intervals: Rate: 69 OK: 192 QRSD: 92 QT: 426 QTc: 456 Donna: P: 9 OK: 192 QRS: 15 T: 24 INTERPRETIVE STATEMENTS: Normal sinus rhythm Normal ECG Compared to ECG 08/07/2019 17:05:58 Myocardial infarct finding no longer present Electronically Signed On 05-01-20 23:58:31 SERVICE CAPTAIN by Sven Murillo
== END 2020-04-30 21:14 | disposition home or self-care (01) ==
LOC: ER 16:22
DX: S00.83XA Contusion of other part of head, initial encounter (principal); G30.9 Alzheimer's disease, unspecified; F02.80 Dementia in other diseases classified elsewhere, unspecified severity, without behavioral disturbance, psychotic disturbance, mood disturbance, and anxiety; R53.81 Other malaise; W06.XXXA Fall from bed, initial encounter; Y93.89 Activity, other specified; Y92.9 Unspecified place or not applicable; Z88.1 Allergy status to other antibiotic agents
CPT/HCPCS: 96361; 93005; 85025; 80048; 36415; 83735; 85610; 80076; 83605; 84484; 84145; 83880; 70450; 72125; 71045; 96360; 99284; J7030; 81003; 81015

== ENCOUNTER 2020-05-11 11:45 | Emergency (ER) | payer OTHER ==
--- OUTSIDE RECORDS SUMMARY | 2020-05-11 11:49 | XMS REPORT | Continuity of Care Document ---
:[address] [facility] t Address [address] [place] [address] Dr. [address]. [address] [place] [address] Care Team Providers Name Role Phone Kamran [...] Expiration Date S jeannie AETNA xxxxLVFF 2019 [place] MEDICAREAETNA 00:00:00 [facility] MEDICARE HMO/PPO MCRxxxxLVFF 0-PresentHMO Problems Condition Condition [...] Stop Date Source Natural father Alcohol abuse [place] [facility] Natural mother Alzheimer's disease [place] [facility] Natural mother Colon cancer [facility] Social History Social Habit Start Date Stop Date Quantity Comments Source Sex Assigned At F Duarte Maradiaga ethodi Tobacco use and 2019-08-10 2019-08-10 Never used Duarte Maradiaga ethodist exposure 00:00:00 00:00:00 Alcohol intake 2019-08-10 2019-08-10 Current drinker of Mike umanzor [facility] 00:00:00 00:00:00 alcohol (finding) Alcohol Comment 2017-07-06 2017-07-06 occasional glass Ella silver [facility] 00:00:00 00:00:00 of wine Smoking Status Start [...] day. ALPRAZolam 2020- No Early onset .25mg Q.[id number] Take 1 Ramachandran (XANAX) 03-19 Alzheimer's [id number] tablet Methodi 0.25 MG 00:00: 23:59 disease 3D (0.[address] tablet 00 :00 with total) by behavioral mouth 3 disturbance (three) (HCC) times a day as needed for anxiety for up to 30 days. ALPRAZolam 2020- No Early onset .25mg Q.82665083 Take 1 Ramachandran (XANAX) 03-19 Alzheimer's [id number] tablet Methodi 0.25 MG 00:00: 00:00 disease [...] DOSES. ALPRAZolam 2019- No Early onset .25mg Q.54644926 Take 1 Ramachandran (XANAX) 9-18 10-15 Alzheimer's [id number] tablet Methodi 0.25 MG 00:00: 00:00 disease 3D (0.[address] tablet 00 :00 with total) by behavioral mouth 3 disturbance (three) (HCC) times a day as needed for anxiety for up to 50 doses. ALPRAZolam 2019- 2020- No Early onset TAKE 1 [place] (XANAX) 11-23 Alzheimer's TABLET BY Methodi 0.25 [...] ALPRAZolam 2019-0 2020- No Early onset .25mg Q.31372951 Take 1 [place] (Xanax) 08-09- Alzheimer's [id number] tablet Methodi 0.25 MG 00:00: 00:00 disease [...] blood 2019-08-10 09:19:00 108 mm[Hg] [place] [facility] pressure Diastolic blood 2019-08-10 09:19:00 73 mm[Hg] [place] [facility] pressure Heart rate 2019-08-10 09:19:00 75 /min Duarte Carrero Body temperature 2019-08-10 09:19:00 36.39 [place] [facility] Body height 2019-08-10 09:19:00 167.6 cm Duarte Carrero Body weight 2019-08-10 09:19:00 105.96 kg Duarte Carrero BMI 2019-08-10 09:19:00 37.70 kg/m2 Duarte Carrero Procedures Procedure Date / Time Performed Performing Clinician Sour e URINALYSIS, AUTOMATED 2020-04-04 16:59:00 Juan C Sanchez on [facility] WITH MICROSCOPY CBC WITH PLATELET AND 2020-04-04 15:55:00 Juan C Sanchez on [facility] DIFFERENTIAL COMPREHENSIVE METABOLIC 2020-04-04 15:55:00 Juan C Sanchez [facility] PANEL Plan of Care Planned Activity Planned Date Details Comments Source Future Scheduled 2019-10-08 INFLUENZA VACCINE [place] [facility] Test 00:00:00 [code = INFLUENZA VACCINE] Future Scheduled 2017 65+ PNEUMOCOCCAL Ramachandran [facility] Test 00:00:00 VACCINE (1 of 1 - PPSV23) [code = 65+ PNEUMOCOCCAL VACCINE (1 of 1 - PPSV23)] Future Scheduled 2002 BREAST CANCER [facility] thodist Test 00:00:00 SCREENING [code = BREAST CANCER SCREENING] Future Scheduled 2002 COLONOSCOPY SCREENING [place] [facility] Test 00:00:00 [code = COLONOSCOPY SCREENING] Future Scheduled 2002 SHINGLES VACCINES (#1) [place] [facility] Test 00:00:00 [code = SHINGLES VACCINES (#1)] Future Scheduled 1970 Hepatitis C screening [place] [facility] Test 00:00:00 (procedure) [code = 687775988] Future Scheduled 1968 COVID-19 VACCINE (1 of [place] [facility] Test 00:00:00 2) [code = COVID-19 VACCINE (1 of 2)] Encounters Start End Encounter Admission Attending Care Care Encounter Source Date/Time Date/Time Type Type Clinicians Facility Department ID 2020-04-06 2020-04-21 Inpatient Cullen BELTRE [facility] [id number] [facility] 15:00:00 13:04:00 TRISH Alfaro [facility] 2019-08-10 2019-08-10 Outpatient MASDEU, [facility] [id number] [place] 00:00:00 00:00:00 OMEGA [address] 2019-02-17 2019-02-17 Outpatient MARCOS, [facility] [id number] [place] 00:00:00 00:00:00 AIMEE [address] Results Test Description Test Time Test Comments Results Result Comments Source GLUCOMETER GLUCOSE- LAB USE ONLY 2020-04-21 11:12:00 Test Item Value Reference Range Interpretation Comme nts GLUCOMETER (test code = GMG) 107 mg/dL 70-100 H CLEANED METERMeter ID: [id number] tor: 6224 MINE JOSÉ GLUCOMETER GLUCOSE- LAB USE [id number] 07:17:00 Test Item Value Reference Range Interpretation Comments GLUCOMETER (test code 109 mg/dL 70-100 H CLEANE D METERMeter ID: = GMG) [id number] tor: 1331 MARIANNE SCOT T GLUCOMETER GLUCOSE- LAB USE [id number] 19:02:00 Test Item Value Reference Range Interpretation Comments GLUCOMETER (test code 121 mg/dL 70-100 H CLEANE D METERMeter ID: = GMG) [id number] tor: 9867 ERIC Drea KARMALE GLUCOMETER GLUCOSE- LAB USE [id number] 16:33:00 Test Item Value Reference Range Interpretation Comments GLUCOMETER (test code 116 mg/dL 70-100 H CLEANE D METERMeter ID: = GMG) [id number] tor: 6224 MINE ROOSEVELT TS GLUCOMETER GLUCOSE- LAB USE [id number] 11:13:00 Test Item Value Reference Range Interpretation Comments GLUCOMETER (test code 179 mg/dL 70-100 H CLEANE D METERMeter ID: = GMG) [id number] tor: 6224 MINE ROOSEVELT TS GLUCOMETER GLUCOSE- LAB USE [id number] 07:45:00 Test Item Value Reference Range Interpretation Comments GLUCOMETER (test code 109 mg/dL 70-100 H CLEANE D METERMeter ID: = GMG) [id number] tor: 3912 [facility] GLUCOMETER GLUCOSE- LAB USE [id number] 19:21:00 Test Item Value Reference Range Interpretation Comments GLUCOMETER (test code 145 mg/dL 70-100 H CLEANE D METERMeter ID: = GMG) [id number] tor: 3831 FRANCIS MILLS GLUCOMETER GLUCOSE- LAB USE [id number] 16:37:00 Test Item Value Reference Range Interpretation Comments GLUCOMETER (test code 108 mg/dL 70-100 H CLEANE D METERMeter ID: = GMG) [id number] tor: 3912 [facility] GLUCOMETER GLUCOSE- LAB USE [id number] 11:38:00 Test Item Value Reference Range Interpretation Comments GLUCOMETER (test code = 103 mg/dL 70-100 H Mete r ID: GMG) [id number] tor: 6680 ELLEN ANGELFIELD GLUCOMETER GLUCOSE- LAB USE [id number] 07:39:00 Test Item Value Reference Range Interpretation Comments GLUCOMETER (test code 117 mg/dL 70-100 H CLEANE D METERMeter ID: = GMG) [id number] tor: 8413 JERROD SAHU LL GLUCOMETER GLUCOSE- LAB USE [id number] 20:02:00 Test Item Value Reference Range Interpretation Comments GLUCOMETER (test code 109 mg/dL 70-100 H CLEANE D METERMeter ID: = GMG) [id number] tor: 7339 KOSTAS WILLIE SON GLUCOMETER GLUCOSE- LAB USE [id number] 16:34:00 Test Item Value Reference Range Interpretation Comments GLUCOMETER (test code = 98 mg/dL 70-100 TANG MCKENNA METERMeter ID: GMG) [id number] tor: 8280 BREANN SAAVEDRA LTON GLUCOMETER GLUCOSE- LAB USE [id number] 11:34:00 Test Item Value Reference Range Interpretation Comments GLUCOMETER (test code 117 mg/dL 70-100 H CLEANE D METERMeter ID: = GMG) [id number] tor: 8280 BREANN SAAVEDRA LTON GLUCOMETER GLUCOSE- LAB USE [id number] 07:19:00 Test Item Value Reference Range Interpretation Comments GLUCOMETER (test code 139 mg/dL 70-100 H CLEANE D METERMeter ID: = GMG) [id number] tor: 6680 ELLEN Keating [facility] GLUCOMETER GLUCOSE- LAB USE [id number] 19:33:00 Test Item Value Reference Range Interpretation Comments GLUCOMETER (test code 112 mg/dL 70-100 H CLEANE D METERMeter ID: = GMG) [id number] tor: 7339 KOSTAS WILLIE SON GLUCOMETER GLUCOSE- LAB USE [id number] 16:09:00 Test Item Value Reference Range Interpretation Comments GLUCOMETER (test 117 mg/dL 70-100 H Result Not code = GMG) ConfirmedMeter ID: [id number] tor: 4611 TORI DE LA ROSAAN GLUCOMETER GLUCOSE- LAB USE [id number] 07:31:00 Test Item Value Reference Range Interpretation Comments GLUCOMETER (test code = 113 mg/dL 70-100 H Mete r ID: GMG) [id number] tor: 6680 ELLEN ANGELFIELD GLUCOMETER GLUCOSE- LAB USE [id number] 19:39:00 Test Item Value Reference Range Interpretation Comments GLUCOMETER (test code 108 mg/dL 70-100 H CLEANE D METERMeter ID: = GMG) [id number] tor: 99306 SILVIA MARIAI GLUCOMETER GLUCOSE- LAB USE [id number] 16:53:00 Test Item Value Reference Range Interpretation Comments GLUCOMETER (test 111 mg/dL 70-100 H CLEANED MET ERDAILY code = GMG) MAINTENANCEMete r ID: [id number] tor: 4612 CARLOS MARTINI GLUCOMETER GLUCOSE- LAB USE [id number] 11:24:00 Test Item Value Reference Range Interpretation Comments GLUCOMETER (test code 120 mg/dL 70-100 H CLEANE D METERMeter ID: = GMG) [id number] tor: 8280 BREANN SAAVEDRA LTON GLUCOMETER GLUCOSE- LAB USE [id number] 07:16:00 Test Item Value Reference Range Interpretation Comments GLUCOMETER (test 125 mg/dL 70-100 H CLEANED MET ERDAILY code = GMG) MAINTENANCEMete r ID: [id number] tor: 4612 CARLOS MARTINI GLUCOMETER GLUCOSE- LAB USE [id number] 16:51:00 Test Item Value Reference Range Interpretation Comments GLUCOMETER (test code 120 mg/dL 70-100 H CLEANE D METERMeter ID: = GMG) [id number] tor: 1328 ASHLEY MURMarifer HY GLUCOMETER GLUCOSE- LAB USE [id number] 11:38:00 Test Item Value Reference Range Interpretation Comments GLUCOMETER (test code 128 mg/dL 70-100 H CLEANE D METERMeter ID: = GMG) [id number] tor: 8280 BREANN SAAVEDRA LTON GLUCOMETER GLUCOSE- LAB USE [id number] 07:47:00 Test Item Value Reference Range Interpretation Comments GLUCOMETER (test code = 116 mg/dL 70-100 H Mete r ID: GMG) [id number] tor: 8280 BREANN IGLESIAS GLUCOMETER GLUCOSE- LAB USE [id number] 19:07:00 Test Item Value Reference Range Interpretation Comments GLUCOMETER (test code 101 mg/dL 70-100 H CLEANE D METERMeter ID: = GMG) [id number] tor: 11644 SILVIA IYERMBI GLUCOMETER GLUCOSE- LAB USE [id number] 16:49:00 Test Item Value Reference Range Interpretation Comments GLUCOMETER (test code 109 mg/dL 70-100 H CLEANE D METERMeter ID: = GMG) [id number] tor: 9379 LEIGH ANN WRIGHT IEWHITE GLUCOMETER GLUCOSE- LAB USE [id number] 12:06:00 Test Item Value Reference Range Interpretation Comments GLUCOMETER (test code 194 mg/dL 70-100 H CLEANE D METERMeter ID: = GMG) [id number] tor: 3912 [facility] GLUCOMETER GLUCOSE- LAB USE [id number] 07:16:00 Test Item Value Reference Range Interpretation Comments GLUCOMETER (test 117 mg/dL 70-100 H CLEANED MET ERDAILY code = GMG) MAINTENANCEMete r ID: [id number] tor: 4612 CARLOS MARTINI GLUCOMETER GLUCOSE- LAB USE [id number] 22:08:00 Test Item Value Reference Range Interpretation Comments GLUCOMETER (test 144 mg/dL 70-100 H Result Not code = GMG) ConfirmedMeter ID: [id number] tor: 0040 KIERRA KOENIG E GLUCOMETER GLUCOSE- LAB USE [id number] 16:11:00 Test Item Value Reference Range Interpretation Comments GLUCOMETER (test code 138 mg/dL 70-100 H CLEANE D METERMeter ID: = GMG) [id number] tor: 1331 MARIANNE GRANDE T GLUCOMETER GLUCOSE- LAB USE [id number] 11:41:00 Test Item Value Reference Range Interpretation Comments GLUCOMETER (test code 105 mg/dL 70-100 H CLEANE D METERMeter ID: = GMG) [id number] tor: 8413 JERROD SAHU LL GLUCOMETER GLUCOSE- LAB USE [id number] 07:19:00 Test Item Value Reference Range Interpretation Comments GLUCOMETER (test code 128 mg/dL 70-100 H CLEANE D METERMeter ID: = GMG) [id number] tor: 1331 MARIANNE SCOT T GLUCOMETER GLUCOSE- LAB USE [id number] 22:01:00 Test Item Value Reference Range Interpretation Comments GLUCOMETER (test code 103 mg/dL 70-100 H CLEANE D METERMeter ID: = GMG) [id number] tor: 1818 [place] B ADMUS GLUCOMETER GLUCOSE- LAB USE [id number] 16:31:00 Test Item Value Reference Range Interpretation Comments GLUCOMETER (test code 129 mg/dL 70-100 H CLEANE D METERMeter ID: = GMG) [id number] tor: 6224 MINE ALBERT TS GLUCOMETER GLUCOSE- LAB USE [id number] 11:36:00 Test Item Value Reference Range Interpretation Comments GLUCOMETER (test code 106 mg/dL 70-100 H CLEANE D METERMeter ID: = GMG) [id number] tor: 8413 JERROD SAHU LL GLUCOMETER GLUCOSE- LAB USE [id number] 16:33:00 Test Item Value Reference Range Interpretation Comments GLUCOMETER (test code = 109 mg/dL 70-100 H Mete r ID: GMG) [id number] tor: 6680 JANEENRAVENRigoberto ARNOLD GLUCOMETER GLUCOSE- LAB USE [id number] 11:32:00 Test Item Value Reference Range Interpretation Comments GLUCOMETER (test code 111 mg/dL 70-100 H CLEANE D METERMeter ID: = GMG) [id number] tor: 8280 BREANN SAAVEDRA [facility] GLUCOMETER GLUCOSE- LAB USE [id number] 07:10:00 Test Item Value Reference Range Interpretation Comments GLUCOMETER (test code 119 mg/dL 70-100 H CLEANE D METERMeter ID: = GMG) [id number] tor: 6224 MINE ROOSEVELT TS [id number] 06:50:00 Test Item Value Reference Range Interpretation Comments LITHIUM (test code = <0.20 mmol/L 0.60-1.50 L LI) LIH (test code = LIH) LIT HIUM THERAPEUTIC RANGE Acute tanya: 1.0-1.5 mmol/L Gabriel-term control 0.6-1.2 mmol/L Toxic level: > 2.0 mmol/L LIPID [id number] 06:48:00 Test Item Value Reference Range Interpretation Comments CHOLESTROL (test code = 44A) 113 mg/dL 140-200 L TRIGLYCERI (test code = 42B) 88 mg/dL <=149 HDL (test code = 83D) 58.0 mg/dL 40.0-60.0 LDL (test code = 34B) 49 mg/dL <=99 CHL/HDL (test code = CHR) 1.9 0.0-3.4 GLUCOMETER GLUCOSE- LAB USE [id number] 21:10:00 Test Item Value Reference Range Interpretation Comments GLUCOMETER (test code 133 mg/dL 70-100 H CLEANE D METERMeter ID: = GMG) [id number] tor: 7339 KOSTAS WILLIE SON GLUCOMETER GLUCOSE- LAB USE [id number] 16:20:00 Test Item Value Reference Range Interpretation Comments GLUCOMETER (test 106 mg/dL 70-100 H Result Not code = GMG) ConfirmedMeter ID: [id number] tor: 4611 TORI MEDRANO GLUCOMETER GLUCOSE- LAB USE [id number] 11:48:00 Test Item Value Reference Range Interpretation Comments GLUCOMETER (test code 130 mg/dL 70-100 H CLEANE D METERMeter ID: = GMG) [id number] tor: 4611 TORI DE LA ROSA AN VALPROIC ACID (DEPAKENE)2020-04-09 08:50:00 Test Item Value Reference Range Interpretation Comments VALP ACID (test code = 95A) <3.0 ug/mL 50.0-100.0 LL B12 [id number] 08:45:00 Test Item Value Reference Range Interpretation Comments VIT B12 (test code = A60) 625.0 pg/mL 180.0-914.0 [id number] 08:45:00 Test Item Value Reference Range Interpretation Comments FOLATE (test code = A75) 52.2 ng/mL 3.1-17.5 H THYROID PANEL/SCREEN (TSH)2020-04-09 08:33:00 Test Item Value Reference Range Interpretation Comments TSH (test code = A57) 2.110 uIU/mL 0.358-3.740 [id number] 08:31:00 Test Item Value Reference Range Interpretation Comments Hb A1C % (test code 5.7 % 3.8-6.4 = HBA) A1C % (test code = HbA1c (% ) A1C) Reference Range Normal <5.7 Prediabetes 5.7-6.4 Diabetic >=6.5 [id number] 08:24:00 Test Item Value Reference Range Interpretation Comments MAGNESIUM (test code = 48A) 2.2 mg/dL 1.8-2.4 [id number] 08:24:00 Test Item Value Reference Range Interpretation Comments PREALBUMIN (test code = 08E) 17 mg/dL 18-38 L GLUCOMETER GLUCOSE- LAB USE [id number] 08:00:00 Test Item Value Reference Range Interpretation Comments GLUCOMETER (test code 109 mg/dL 70-100 H CLEANE D METERMeter ID: = GMG) [id number] tor: 8413 JERROD SAHU LL GLUCOMETER GLUCOSE- LAB USE [id number] 19:54:00 Test Item Value Reference Range Interpretation Comments GLUCOMETER (test code 112 mg/dL 70-100 H CLEANE D METERMeter ID: = GMG) [id number] tor: 8582 MEKA SHIPLEY WFORD GLUCOMETER GLUCOSE- LAB USE [id number] 16:20:00 Test Item Value Reference Range Interpretation Comments GLUCOMETER (test code 107 mg/dL 70-100 H CLEANE D METERMeter ID: = GMG) [id number] tor: 6224 MINE ALBERT TS GLUCOMETER GLUCOSE- LAB USE [id number] 11:14:00 Test Item Value Reference Range Interpretation Comments GLUCOMETER (test code 124 mg/dL 70-100 H CLEANE D METERMeter ID: = GMG) [id number] tor: 1331 AMPATRICIA SCOT T GLUCOMETER GLUCOSE- LAB USE [id number] 08:08:00 Test Item Value Reference Range Interpretation Comments GLUCOMETER (test 121 mg/dL 70-100 H CLEANED MET ERDAILY code = GMG) MAINTENANCEMete r ID: [id number] tor: 4612 CARLOS MARTINI GLUCOMETER GLUCOSE- LAB USE [id number] 05:24:00 Test Item Value Reference Range Interpretation Comments GLUCOMETER (test code 120 mg/dL 70-100 H CLEANE D METERMeter ID: = GMG) [id number] tor: 7320 RUDI Guzman DRUGS OF [id number] 19:05:00 Test Item Value Reference Range Interpretation [...] 200 ng/mL Opiates 2000 ng/mL URINALYSIS WITH [id number] 18:52:00 Test Item Value Reference Range Interpretation [...] UR (test code = USPERM) /HPF NONE [id number] 17:31:00 Test Item Value Reference Range Interpretation Comments ACETAMINPH (test code = 94M) <2.0 ug/mL 10.0-30.0 L [id number] 17:07:00 Test Item Value Reference Range Interpretation Comments SALICYLATE (test code = 94B) <1.7 mg/dL 2.8-20.0 L C-REACTIVE PROTEIN [id number] 17:07:00 Test Item Value Reference Range Interpretation [...] = <10 mg/dL <=10 56A) COMPREHENSIVE METABOLIC [id number] 16:57:00 Test Item Value Reference Range Interpretation [...] code = 31A) 30 IU/L <=78 LIVER [id number] 16:57:00 Test Item Value Reference Range Interpretation [...] = 31A) 30 IU/L <=78 AMYLASE AND [id number] 16:57:00 Test Item Value Reference Range Interpretation Comments AMYLASE (test code = 10A) 35 U/L 28-100 LIPASE (test code = 60A) 234 IU/L 73-393 [id number] 16:57:00 Test Item Value Reference Range Interpretation Comments CPK (test code = 32A) 287 IU/L 26-192 H [id number] 16:57:00 Test Item Value Reference Range Interpretation Comments FERRITIN (test code = A19) 108.3 ng/mL 8.0-252.0 LDH-LACTIC [id number] 16:57:00 Test Item Value Reference Range Interpretation Comments LDH (test code = 33A) 279 IU/L 84-246 H [id number] 16:56:00 Test Item Value Reference Range Interpretation [...] the FDA and the [employer] of the [employer] (CAP) are more stringent than those required for this test. Therefore, the result should be interpreted with caution and close attention to other clinical and epidemiological data CARDIAC [id number] 16:55:00 Test Item Value Reference Range Interpretation Comments TROPONIN I (test code = A84) <0.015 ng/mL 0.000-0.045 AMMONIA [id number] 16:54:00 Test Item Value Reference Range Interpretation Comments AMMONIA (test code = 54A) 18 umol/L 11-32 PRO TIME AND [id number] 16:47:00 Test Item Value Reference Range Interpretation [...] code = RBCMOR) NORMAL Urinalysis, automated with [id number] 04:38:00 Test Item Value Reference Range Interpretation Comments Color, UA (test code YELLOW YELLOW = 5778-6) Appearance (test CLEAR CLEAR code = 5767-9) Specific gravity, 1.013 1.001-1.035 urine (test code = 5811-5) pH, urine (test code < OR = 5.0 5.0-8.0 = 5803-2) Glucose, urine (test NEGATIVE NEGATIVE code = 26199-8) Bilirubin, UA (test NEGATIVE NEGATIVE code = 5770-3) Ketones, UA (test NEGATIVE NEGATIVE code = 2514-8) Occult blood, urine NEGATIVE NEGATIVE (test code = 5794-3) Protein, UA (test NEGATIVE NEGATIVE code = 77737-3) Nitrite, UA (test NEGATIVE NEGATIVE code = [...] (test code = 0-2 See_Comment [Autom ated 13384-7) message] The system which generated this result transmitted reference range : < OR = 2 /HPF. The reference range was not used to interpr et this result as normal/abnormal . Squamous epithelial NONE SEEN See_Comment [Automa cells, UA (test code message ] The = 60570-9) system which generated this result transmitted reference range : < OR = 5 /HPF. The reference range was not used to interpr et this result as normal/abnormal . Bacteria, UA (test NONE SEEN NONE SEEN /HPF code = 5769-5) Hyaline casts, UA NONE SEEN NONE SEEN /LPF (test code = 5796-8) MEEK (test code = SPLIT 04/04/2020 MEEK) FROM [id number] RAC (test code = Performing RAC) Organization Information: Site ID: [facility] Name: [facility] Address: [address] [place] [phone] Director: Alexis Schroeder Lab Interpretation Abnormal (test code = 91954-3) [facility] [id number] 01:22:00 Test Item Value Reference Interpretation Comments [...] Non-Afr. 57 See_Comment L [Automated me ssage] Bruneian (test code The syst em which = 7065) generated this result transmit reference range : > OR = 60 mL/min/1.73m2. The reference range was not used to interpret this result as normal/abnormal . EGFR 66 See_Comment [Automated mes abraham] Bruneian (test code The syst em which = 79906-5) generated this result transmit reference range : [...] . Sodium (test code = 141 mmol/L 412-464 5532-2) Potassium (test 4.0 mmol/L 3.5-5.3 code = 2823-3) Chloride (test code 104 mmol/L 98-110 = 2075-0) CO2 (test code = 30 mmol/L 20-32 2027-9) Calcium (test code 9.3 mg/dL 8.6-10.4 = 68260-2) Protein (test code 6.4 g/dL 6.1-8.1 = 2885-2) Albumin, S (test 4.2 g/dL 3.6-5.1 code = 1751-7) Globulin, total 2.2 See_Comment [Automated message] (test code = The system [employer] h 94792-0) generated this result transmit reference range : [...] RAC) Organization Information: Site ID: [facility] Name: [facility] Address: [address] [place] [phone] Director: Alexis Schroeder Lab Interpretation Abnormal (test code = 97447-5) [facility] with platelet and [id number] 01:22:00 Test Item Value Reference Range Interpretation Comments WBC (test code = 7.1 See_Comment [Automated 1790-2) message] The system which generated this result transmitted reference range : 3.8 - 10.8 Thousand/uL. Th e reference range was not used to interpret this result as normal/abnormal . RBC (test code = 4.16 See_Comment [Automated 205-8) message] The system which generated this result [...] RAC) Organization Information: Site ID: [facility] Name: [facility] Lab Address: [address] [place] [phone] Director: Alexis Carrero
[2020-05-11] MEDS ORDERED: NA CHLORIDE 0.9% 3,000 ML ONE (12:26)
[2020-05-11 12:48] LABS: Absolute Lymphocytes (CBC) 0.9 K/uL (0.7-4.9); Basophils % 0.2 % (0-1.3); Hematocrit 38.8 % (36.0-45.0); Lymphocytes % 13.7 % (15.3-44.8); MPV 7.8 fL (7.6-11.3); RBC Red Blood Cell Count 4.48 M/uL (3.86-4.86)
--- NOTE | 2020-05-11 12:59 | RAD REPORT ---
EXAM DESCRIPTION: CT - Head Brain Wo Cont - 05/11/2020 12:37 pm CLINICAL HISTORY: Alteration of awareness/confusion COMPARISON: 2019 TECHNIQUE: Computed axial tomography of the head was obtained. IV contrast was not requested. All CT scans are performed using dose optimization technique as appropriate and may include automated exposure control or mA/KV adjustment according to patient size. FINDINGS: An intracranial bleed is not seen . The ventricles are normal in caliber. No extra-axial fluid collection is noted. Fluid within the sinuses/ mastoids is not seen. IMPRESSION: No acute intracranial abnormality is seen. If patient's symptoms persist MRI of the bra in would be recommended.
[2020-05-11 13:05] LABS: Protime INR 1.1
--- NOTE | 2020-05-11 13:05 | RAD REPORT ---
EXAM DESCRIPTION: CT - Abdomen Pelvis W Contrast - 05/11/2020 12:37 pm CLINICAL HISTORY: Abdominal pain COMPARISON: none. TECHNIQUE: Computed axial tomography of the abdomen pelvis was obtained. 100 cc Isovue-300 was admin istered intravenously. Oral contrast was not requested which limits evaluation of bowel. All CT scans are performed using dose optimization technique as appropriate and may include automated exposure control or mA/KV adjustment according to patient size. FINDINGS: The liver, spleen, pancreas, adrenal and kidneys appear unremarkable. There is no evidence of diverticulitis. Normal appendix Postsurgical changes involve stomach. Degenerative changes involve lumbar spine IMPRESSION: No acute abnormality is displayed.
--- NOTE | 2020-05-11 13:09 | RAD REPORT ---
EXAM DESCRIPTION: Bacilio Single View05/11/2020 12:56 pm CLINICAL HISTORY: Alteration consciousness COMPARISON: April 2020 FINDINGS: The lungs appear clear of acute infiltrate. The heart is normal size IMPRESSION: No acute abnormalities displayed
[2020-05-11 13:13] LABS: ALT/SGPT 19 U/L (12-78); AST/SGOT 11 U/L (15-37); Albumin 3.1 g/dL (3.4-5.0); Alkaline Phosphatase 64 U/L (45-117); Amylase 25 U/L (25-115); BUN Blood Urea Nitrogen 12 mg/dL (7-18); Bicarbonate 28 mmol/L (21-32); Bilirubin Direct 0.1 mg/dL (0-0.2); Bilirubin Total 0.4 mg/dL (0.2-1.0); CKMB Creatine Kinase MB < 1.0 ng/mL (0.3-3.6); Creatine Phosphokinase 52 U/L (26-192); Glucose Level 121 mg/dL (74-106); Lipase 165 U/L (73-393); Protein, Total 6.7 g/dL (6.4-8.2); Sodium Level 141 mmol/L (136-145); Troponin (Emerg Dept Use Only) < 0.02 ng/mL (0.0-0.045)
[2020-05-11 13:17] LABS: Urine Blood TRACE (NEG); Urine Glucose NEGATIVE (NEG); Urine Protein TRACE (NEG)
[2020-05-11 13:54] LABS: Urine Bacteria <20 /HPF (<20)
--- NOTE | 2020-05-11 14:45 | ER ---
Nurse's Notes [facility] Name: Ariella Ignacio Age: 69 yrs Sex: Female : 1950 Arrival Date: 05/11/2020 Time: 11:48 Bed 4 Private MD: Raymond Andrew V Diagnosis: Altered mental status, unspecified Presentation: 05/11 11:53 Chief complaint: EMS states: pt has hx of Alzheimer's but normally is up and walking iw and oriented, pt has had sudden decline in mental status over past 3 days , pt now only verbalizes to pain, pt has old bruising to her forehead from a week or two ago when she fell off the bed, was seen in ER at that time. Coronavirus screen: At this time, the client does not indicate any symptoms associated with coronavirus-19. Ebola Screen: Patient negative for fever greater than or equal to 101.5 degrees Fahrenheit, and additional compatible Ebola Virus Disease symptoms Patient denies exposure to infectious person. Patient denies travel to an Ebola-affected area in the 21 days before illness onset. No symptoms or risks identified at this time. Initial Sepsis Screen: Does the patient meet any 2 criteria? No. Patient's initial sepsis screen is negative. Does the patient have a suspected source of infection? No. Patient's initial sepsis screen is negative. Risk Assessment: Do you want to hurt yourself or someone else? Patient reports no desire to harm self or others. Onset of symptoms was May 08, 2020. 11:53 Method Of Arrival: EMS: [facility] iw 11:53 Acuity: JENNIFER 2 iw 11:57 Care prior to arrival: Glucose check: 121. iw Historical: - Allergies: 11:58 Ceclor; iw - Home Meds: 12:04 memantine 10 mg oral tab 1 tab 2 times per day [Active]; Vitamin B-12 Oral daily iw [Active]; trazodone 50 mg Oral tab nightly [Active]; atorvastatin 20 mg oral tab 1 tab once daily [Active]; donepezil 10 mg oral tab 1 tab once daily [Active]; escitalopram oxalate 20 mg oral tab 1 tab once daily [Active]; Risperdal 0.5 mg Oral tab three times a day [Active]; folic acid 1 mg Oral tab 1 tab once daily [Active]; pantoprazole 40 mg oral TbEC 1 tab once daily [Active]; - PMHx: 12:04 Alzheimers; Dementia; iw - Immunization history:: Adult Immunizations up to date. - Social history:: Smoking status: Patient denies any tobacco usage or history of. Screenin:30 Tuberculosis screening: No symptoms or risk factors identified. Fall Risk Fall in past bw 12 months (25 points). Secondary diagnosis (15 points) IV access (20 points). Ambulatory Aid- None/Bed Rest/Nurse Assist (0 pts). Gait- Normal/Bed Rest/Wheelchair (0 pts) Mental Status- Overestimates/Forgets Limitations (15 pts.). Total Huntley Fall Scale indicates High Risk Score (45 or more points). Family Present and informed to notify staff if the need to leave the bedside. 15:45 Abuse screen: Denies threats or abuse. Nutritional screening: No deficits noted. bw Assessment: 12:30 Reassessment: Patient appears in no apparent distress at this time. Patient and/or bw family updated on plan of care and expected duration. Pain level reassessed. 13:21 Pain: Denies pain. Neuro: Level of Consciousness is obtunded. bw 13:21 Cardiovascular: No deficits noted. Respiratory: No deficits noted. GI: No deficits bw noted. : No deficits noted. EENT: No deficits noted. Derm: No deficits noted. 14:30 Reassessment: Patient appears in no apparent distress at this time. No changes from bw previously documented assessment. Patient and/or family updated on plan of care and expected duration. Pain level reassessed. 15:30 Reassessment: Patient appears in no apparent distress at this time. No changes from bw previously documented assessment. Patient and/or family updated on plan of care and expected duration. Pain level reassessed. 16:00 Reassessment: spoke with Lyssa at [facility], states that she is setting up equipment to be iw delivered to pt home, including hospital bed and O2 concentrator. Vital Signs: 11:53 BP 106 / 77; Pulse 70; Resp 16; Temp 98.4(O); Pulse Ox 94% on R/A; iw 12:05 Weight 45.26 kg (M); Height 5 ft. 6 in. (167.64 cm); bw 13:17 BP 133 / 74; Pulse 62; Resp 16; Temp 99.0(C); Pulse Ox 100% on 15% Venturi mask; mh5 14:45 BP 128 / 78; Pulse 64; Resp 14; Temp 99; Pulse Ox 97% on Simple Mask; bw 15:45 BP 130 / 76; Pulse 63; Resp 14; Temp 99.2; Pulse Ox 98% on Simple Mask; bw 12:05 Body Mass Index 16.11 (45.26 kg, 167.64 cm) bw ED Course: 11:48 Patient arrived in ED. am2 11:48 Raymond Andrew MD is Private Physician. am2 11:51 Jacques Rosa MD is Attending Physician. kdr 11:57 Triage completed. iw 11:57 Arm band placed on. iw 12:04 Martine Walls, CYNDI is Primary Nurse. bw 12:30 Initial lab(s) drawn, by me, sent to lab. First set of blood cultures drawn by me, EKG [facility] done, by ED staff, reviewed by Jacques Rosa MD. 12:37 CT Abd/Pelvis - IV Contrast Only In Process Unspecified. EDMS 12:37 Head Brain Wo Cont In Process Unspecified. EDMS 12:40 Inserted saline lock: 22 gauge in right antecubital area, using aseptic technique. 5 Blood collected. 12:42 Patient has correct armband on for positive identification. Bed in low position. Call [facility] light in reach. Side rails up X2. Adult w/ patient. Warm blanket given. telemetry monitor on. Pulse ox on. NIBP on. 12:43 Amylase, Serum Sent. 5 12:43 Basic Metabolic Panel Sent. 5 12:43 Blood Culture Adult (2) Sent. mh5 12:43 CBC with Diff Sent. mh5 12:43 Ckmb Sent. mh5 12:43 CPK Sent. mh5 12:43 Lactate Sent. 5 12:43 LFT's Sent. mh5 12:44 Lipase Sent. mh5 12:44 Procalcitonin Sent. mh5 12:44 Protime (+inr) Sent. mh5 12:44 Ptt, Activated Sent. mh5 12:44 Troponin (emerg Dept Use Only) Sent. mh5 12:56 Chest Single View XRAY In Process Unspecified. EDMS 13:04 Urine collected: Graham catheter specimen, clear. Graham cath inserted, using sterile mh5 technique, 16 Fr., by me, by ED staff, urine specimen collected. 13:29 Urine Microscopic Only Sent. [facility] 14:43 Raymond Andrew MD is Referral Physician. [facility] 14:53 Urine Dipstick--Ancillary (enter results) Sent. Administered Medications: No medications were administered Outcome: 14:44 Discharge ordered by . kdr 16:31 Patient left the ED. Signatures: Dispatcher [employer] EDMS Jacques Rosa MD MD kdr Oralia Hernandez, RN RN Alicia Zapien 5 Donna Neumann am2 Martine Walls RN RN Corrections: (The following items were deleted from the chart) 12:05 11:53 BP 106 / 77; Pulse 70bpm; Resp 16bpm; Pulse Ox 94% RA; [facility] 16:29 16:00 Reassessment: spoke with Lyssa at [facility] 16:30 15:45 Tuberculosis screening: No symptoms or risk factors identified. [facility] 16:30 15:45 Fall Risk Fall in past 12 months (25 points). Secondary diagnosis (15 points) IV bw access (20 points). Ambulatory Aid- None/Bed Rest/Nurse Assist (0 pts). Gait- Normal/Bed Rest/Wheelchair (0 pts) Mental Status- Overestimates/Forgets Limitations (15 pts.). Total Huntley Fall Scale indicates High Risk Score (45 or more points). Family Present and informed to notify staff if the need to leave the bedside bw
--- NOTE | 2020-05-11 14:45 | EDPHYS ---
Physician Documentation [facility] Name: Ariella Ignacio Age: 69 yrs Sex: Female : 1950 Arrival Date: 05/11/2020 Time: 11:48 Bed 4 Private MD: Raymond Andrew V ED Physician Jacques Rosa HPI: 05/11 12:00 This 69 yrs old Female presents to ER via EMS with complaints of Altered kdr Mental Status. 12:00 The patient presents with decreased mental status, decreased responsiveness. Onset: The kdr symptoms/episode began/occurred The patient has dementia and normally limited communication skills but is o/w ambulatory and able to participate in self care. She went to bed Thursday night and has not awakened since. She is only slightly arousable to painful stimuli. She does not appear to be in any distress but sleeping. Possible causes: CVA or TIA, head injury, sepsis. Associated signs and symptoms: The patient has no apparent associated signs or symptoms. Current symptoms: In the emergency department the patient's symptoms are unchanged from the initial presentation. Patient's baseline: Neuro: alert but confused, Motor: no deficits, Ambulation: walks without assistance, Speech: the patient can speak but doesn't make sense, The patient has a previous history of dementia. The patient has not experienced similar symptoms in the past. The patient has not recently seen a physician. Historical: - Allergies: 11:58 Ceclor; iw - Home Meds: 12:04 memantine 10 mg oral tab 1 tab 2 times per day [Active]; Vitamin B-12 Oral daily iw [Active]; trazodone 50 mg Oral tab nightly [Active]; atorvastatin 20 mg oral tab 1 tab once daily [Active]; donepezil 10 mg oral tab 1 tab once daily [Active]; escitalopram oxalate 20 mg oral tab 1 tab once daily [Active]; Risperdal 0.5 mg Oral tab three times a day [Active]; folic acid 1 mg Oral tab 1 tab once daily [Active]; pantoprazole 40 mg oral TbEC 1 tab once daily [Active]; - PMHx: 12:04 Alzheimers; Dementia; iw - Immunization history:: Adult Immunizations up to date. - Social history:: Smoking status: Patient denies any tobacco usage or history of. ROS: 12:00 Constitutional: Negative for fever, chills, and weight loss - ROS from Eyes: kdr Negative for injury, pain, redness, and discharge, Neck: Negative for injury, pain, and swelling, Cardiovascular: Negative for chest pain, palpitations, and edema, Respiratory: Negative for shortness of breath, cough, wheezing, and pleuritic chest pain, Abdomen/GI: Negative for abdominal pain, nausea, vomiting, diarrhea, and constipation, Back: Negative for injury and pain, : Negative for injury, bleeding, discharge, and swelling, MS/Extremity: Negative for injury and deformity, Skin: Negative for injury, rash, and discoloration, Psych: Negative for depression, anxiety, suicide ideation, homicidal ideation, and hallucinations, Allergy/Immunology: Negative for hives, rash, and allergies, Endocrine: Negative for neck swelling, polydipsia, polyuria, polyphagia, and marked weight changes, Hematologic/Lymphatic: Negative for swollen nodes, abnormal bleeding, and unusual bruising. 12:00 Neuro: Positive for altered mental status. Exam: 12:00 Constitutional: This is a well developed, well nourished patient who is awake, alert, kdr and in no acute distress. Head/Face: Normocephalic, atraumatic. Neck: Trachea midline, no thyromegaly or masses palpated, and no cervical lymphadenopathy. Supple, full range of motion without nuchal rigidity, or vertebral point tenderness. No Meningismus. Chest/axilla: Normal chest wall appearance and motion. Nontender with no deformity. No lesions are appreciated. Cardiovascular: Regular rate and rhythm with a normal S1 and S2. No gallops, murmurs, or rubs. Normal PMI, no JVD. No pulse deficits. Respiratory: Lungs have equal breath sounds bilaterally, clear to auscultation and percussion. No rales, rhonchi or wheezes noted. No increased work of breathing, no retractions or nasal flaring. Back: No spinal tenderness. No costovertebral tenderness. Full range of motion. Skin: Warm, dry with normal turgor. Normal color with no rashes, no lesions, and no evidence of cellulitis. MS/ Extremity: Pulses equal, no cyanosis. Neurovascular intact. Full, normal range of motion. 12:00 Abdomen/GI: Inspection: obese Bowel sounds: active, Palpation: soft, mild abdominal tenderness, in all quadrants. 18:47 ECG was reviewed by the Attending Physician. kdr Vital Signs: 11:53 BP 106 / 77; Pulse 70; Resp 16; Temp 98.4(O); Pulse Ox 94% on R/A; iw 12:05 Weight 45.26 kg (M); Height 5 ft. 6 in. (167.64 cm); bw 13:17 BP 133 / 74; Pulse 62; Resp 16; Temp 99.0(C); Pulse Ox 100% on 15% Venturi mask; mh5 14:45 BP 128 / 78; Pulse 64; Resp 14; Temp 99; Pulse Ox 97% on Simple Mask; bw 15:45 BP 130 / 76; Pulse 63; Resp 14; Temp 99.2; Pulse Ox 98% on Simple Mask; bw 12:05 Body Mass Index 16.11 (45.26 kg, 167.64 cm) bw MDM: 14:44 Patient medically screened. kdr 16:46 Data reviewed: vital signs, lab test result(s), EKG, radiologic studies. Counseling: I kdr had a detailed discussion with the patient and/or guardian regarding: the historical points, exam findings, and any diagnostic results supporting the discharge/admit diagnosis, lab results, radiology results, the need for outpatient follow up. Physician consultation: Raymond Andrew MD regarding consult, patient's condition, outpatient follow-up, Wants patient discharged on Hospice. He will call [facility] and make necessary arrangements. 05/11 12:00 Order name: Amylase, Serum; Complete Time: 14:27 [facility] 05/11 12:00 Order name: Basic Metabolic Panel; Complete Time: 14:27 [facility] 05/11 12:00 Order name: Blood Culture Adult (2) kdr 05/11 12:00 Order name: CBC with Diff; Complete Time: 14:27 kdr 05/11 12:00 Order name: Ckmb; Complete Time: 14:27 kdr 05/11 12:00 Order name: CPK; Complete Time: 14:27 kdr 05/11 12:00 Order name: Lactate; Complete Time: 14:27 kdr 05/11 12:00 Order name: LFT's; Complete Time: 14:27 [facility] 05/11 12:00 Order name: Lipase; Complete Time: 14:27 [facility] 05/11 12:00 Order name: Procalcitonin; Complete Time: 14:27 kdr 05/11 12:00 Order name: Protime (+inr); Complete Time: 14:27 kdr 05/11 12:00 Order name: Ptt, Activated; Complete Time: 14:27 kdr 05/11 12:00 Order name: Troponin (emerg Dept Use Only); Complete Time: 14:27 kdr 05/11 12:00 Order name: Urine Microscopic Only; Complete Time: 14:27 kdr 05/11 12:00 Order name: Chest Single View XRAY; Complete Time: 14:27 kdr 05/11 12:00 Order name: Accucheck; Complete Time: 12:38 kdr 05/11 12:00 Order name: Cardiac monitoring; Complete Time: 12:38 kdr 05/11 12:00 Order name: EKG - Nurse/Tech; Complete Time: 12:39 kdr 05/11 12:00 Order name: IV Saline Lock - Large Bore; Complete Time: 12:39 kdr 05/11 12:00 Order name: Labs collected and sent; Complete Time: 12:39 kdr 05/11 12:00 Order name: O2 Per Protocol; Complete Time: 12:39 kdr 05/11 12:10 Order name: CT Abd/Pelvis - IV Contrast Only; Complete Time: 14:27 kdr 05/11 12:14 Order name: Head Brain Wo Cont; Complete Time: 14:27 EDMS 05/11 12:43 Order name: Glucose, Ancillary Testing; Complete Time: 14:27 EDMS 05/11 13:15 Order name: Urine Dipstick--Ancillary (enter results) eb 05/11 13:15 Order name: Urine Dipstick-Ancillary; Complete Time: 14:27 EDMS 05/11 14:09 Order name: UDS iw 05/11 14:09 Order name: AMMONIA iw 05/11 12:00 Order name: O2 Sat Monitoring; Complete Time: 12:39 kdr 05/11 12:00 Order name: Urine Dipstick-Ancillary (obtain specimen); Complete Time: 12:39 kdr EC:47 Rate is 79 beats/min. Rhythm is regular, Normal Sinus Rhythm with No ectopy. QRS [place] kdr is Normal. [place] interval is normal. QRS interval is normal. QT interval is normal. Clinical impression: Normal ECG. Administered Medications: No medications were administered Disposition: 05/11/20 14:44 Discharged to Home. Impression: Altered mental status, unspecified. - Condition is Stable. - Discharge Instructions: Dementia, [id number]. - Medication Reconciliation Form, Thank You Letter form. - Follow up: Raymond Andrew MD; When: 2 - 3 days; Reason: Recheck today's complaints, Continuance of care, Re-evaluation by your physician. - Problem is an acute exacerbation. - Symptoms are unchanged. - Notes: Dr. Andrew has called [facility] to manage your home care Hospice needs Signatures: Dispatcher [employer] EDVT Jacques Rosa MD MD kdr Oralia Hernandez RN RN iw Martine Walls RN RN bw Corrections: (The following items were deleted from the chart) 12:14 12:01 Head Brain W/ Wo Con+CT.RAD.BRZ ordered. [facility] EDMS 16:31 14:44 05/11/2020 14:44 Discharged to Home. Impression: Altered mental status, bw unspecified. Condition is Stable. Forms are Medication Reconciliation Form, Thank You Letter, Antibiotic Education, Prescription Opioid Use. Follow up: Raymond Andrew; When: 2 - 3 days; Reason: Recheck today's complaints, Continuance of care, Re-evaluation by your physician. Problem is an acute exacerbation. Symptoms are unchanged. kdr
[2020-05-11 14:56] LABS: Barbiturates NEGATIVE (NEGATIVE); Benzodiazepines NEGATIVE (NEGATIVE); Cocaine NEGATIVE (NEGATIVE); METHAMPHETAM NEGATIVE (NEGATIVE); Methadone NEGATIVE (NEGATIVE); Opiates NEGATIVE (NEGATIVE); Phencyclidine NEGATIVE (NEGATIVE); THC Cannibis NEGATIVE (NEGATIVE)
[2020-05-11 21:45] VITALS: BP 130/76; TEMP 99.2; O2SAT 98
== END 2020-05-11 16:31 | disposition home or self-care (01) ==
LOC: ER 11:45
DX: R41.82 Altered mental status, unspecified (principal); G30.9 Alzheimer's disease, unspecified; F02.80 Dementia in other diseases classified elsewhere, unspecified severity, without behavioral disturbance, psychotic disturbance, mood disturbance, and anxiety; Z88.1 Allergy status to other antibiotic agents
CPT/HCPCS: 93005; 87040 ×2; 85025; 80048; 36415; 82140; 82150; 82550; 85610; 82947; 80076; 80307 ×8; 83605; 85730; 84484; 82553; 83690; 84145; 70450; 74177; 71045; 51702; 99285; Q9967; J7030; 81003; 81015